=== PATIENT | female | born 1995 | race Caucasian/White ===

== ENCOUNTER 2017-04-06 08:58 | Emergency (ER) | payer SELFPAY ==
[2017-04-06 09:10] VITALS: BP 111/95
--- NOTE | 2017-04-06 09:45 | ER Document Report ---
HPI - HPI Patient complains to provider of: chemical burn Onset: Other - 2 days Onset/Duration: Persistent Quality of pain: Burning Pain Level: 4 Context: States that she her hair 2 days ago. Patient states that she developed burning to her scalp and has since developed bruising scabbed lesions to the scalp. Patient states she previously has had a reaction to hair dye in the past that she thought it was only attributed to the pneumonia in the product. Patient states she used a hair dye without pneumonia 2 days ago. Associated Symptoms: Other - scalp pain, skin lesions. denies: Earache, Fever Exacerbated by: Denies Relieved by: Denies Similar symptoms previously: Yes Recently seen / treated by doctor: No - ROS ROS below otherwise negative: Yes Systems Reviewed and Negative: Yes All other systems reviewed and negative - CONSTITUTIONAL Constitutional: DENIES: Fever, Chills - NEURO Neurology: DENIES: Headache - GASTROINTESTINAL Gastrointestinal: DENIES: Nausea - REPRODUCTIVE Reproductive: DENIES: : - DERM Skin Color: Normal, [place] Notes: oozing skin lesions to scalp Past Medical History - General Information source: Patient - Social History Smoking Status: Current Every Day Smoker Frequency of alcohol use: Occasional Drug Abuse: None Occupation: [employer] Family History: Reviewed & Not Pertinent Patient has suicidal ideation: No Patient has homicidal ideation: No Renal/ Medical History: Denies: Hx Peritoneal Dialysis GI Medical History: Reports: Hx Gastritis, Hx Hiatal Hernia Skin Medical History: Reports Hx Cellulitis, Reports Hx Eczema Psychiatric Medical History: Reports: Hx Bipolar Disorder, Hx Depression Past Surgical History: Reports: Hx Abdominal Surgery - flap to stomach - Immunizations Immunizations up to date: Yes Hx Diphtheria, Pertussis, Tetanus Vaccination: Yes Vertical Provider Document - CONSTITUTIONAL Agree With Documented VS: Yes Exam Limitations: No Limitations General Appearance: WD/WN, No Apparent Distress - INFECTION CONTROL TRAVEL OUTSIDE OF THE [place] IN LAST 30 DAYS: No - HEENT HEENT: Atraumatic, Normocephalic - NECK Neck: Normal Inspection, Supple. negative: Lymphadenopathy-Left, Lymphadenopathy-Right - RESPIRATORY Respiratory: Breath Sounds Normal, No Respiratory Distress O2 Sat by Pulse Oximetry: 97 - CARDIOVASCULAR Cardiovascular: Regular Rate, Regular Rhythm - BACK Back: Normal Inspection - MUSCULOSKELETAL/EXTREMETIES Musculoskeletal/Extremeties: MAEW - NEURO Level of Consciousness: Awake, Alert, Appropriate - DERM Integumentary: Warm, Dry, Rash - erythematous weeping skin lesions to scalp. negative: Abscess Course - Re-evaluation Re-evalutation: 04/06/17 09:[address] lara who advises treating with bactrim and avoiding hair dye in the future pt requests having a test - Vital Signs Vital signs: Temp Pulse Resp BP Pulse Ox 98.7 F 107 H 16 111/95 H 97 04/06/17 09:07 04/06/17 09:07 04/06/17 09:07 04/06/17 09:07 04/06/17 09:07 - Laboratory Laboratory results interpreted by me: 04/06/17 10:46 Labs- Entire Visit 04/06/17 09:55 Urine HCG, Qual NEGATIVE Discharge - Discharge Clinical Impression: Skin rash Condition: Stable Disposition: HOME, SELF-CARE Instructions: Soap Cleansing ([facility]), Trimethoprim-Sulfa ([facility]), Contact Dermatitis ([facility]) Additional Instructions: return as needed for any new or worsening symptoms follow up with a oven stripper for any continued problems follow up with a primary care provider for a recheck Prescriptions: Sulfamethoxazole/Trimethoprim [Bactrim Ds Tablet] 1 each PO BID #20 tablet Referrals: SCOT FERGUSON DO [ACTIVE STAFF] - Follow up as needed [facility] [Provider Group] - Follow up as needed [facility] [Provider Group] - Follow up as needed
== END 2017-04-06 11:04 | disposition home or self-care (01) ==
LOC: ER 08:58
DX: R21 Rash and other nonspecific skin eruption (principal); F17.200 Nicotine dependence, unspecified, uncomplicated
CPT/HCPCS: 81025; 99283

== ENCOUNTER 2017-10-18 11:45 | Emergency (ER) | payer SELFPAY ==
[2017-10-18 12:05] VITALS: BP 124/73
--- NOTE | 2017-10-18 13:07 | ER Document Report ---
ED Respiratory Problem - General Chief Complaint: Cough Stated Complaint: FEVER Time Seen by Provider: 10/18/17 12:49 TRAVEL OUTSIDE OF THE [place]. IN LAST 30 DAYS: No - HPI Notes: 21 years old female presents today with sore throat for 2 days and coughing on and off for the last 2 days 2 with clear sputum. She is a smoker has been wheezing on and off. Denies any fever chills or other cough or constitutional symptoms. - Related Data Allergies/Adverse Reactions: risperidone [From Risperdal] Allergy (Mild, Verified 10/18/17 11:46) cephalexin [From Keflex] Allergy (Verified 10/18/17 11:46) prednisone Allergy (Verified 10/18/17 11:46) acetaminophen [From Tylenol] Adverse Reaction (Verified 10/18/17 11:46) hydrocodone bitartrate [From Vicodin] Adverse Reaction (Verified 10/18/17 11:46) Past Medical History - Social History Smoking Status: Current Every Day Smoker Chew tobacco use (# tins/day): No Frequency of alcohol use: Occasional Drug Abuse: Marijuana Family History: Reviewed & Not Pertinent Patient has suicidal ideation: No Patient has homicidal ideation: No Renal/ Medical History: Denies: Hx Peritoneal Dialysis GI Medical History: Reports: Hx Gastritis, Hx Hiatal Hernia Skin Medical History: Reports Hx Cellulitis, Reports Hx Eczema Psychiatric Medical History: Reports: Hx Bipolar Disorder, Hx Depression Past Surgical History: Reports: Hx Abdominal Surgery - flap to stomach - Immunizations Immunizations up to date: Yes Hx Diphtheria, Pertussis, Tetanus Vaccination: Yes Review of Systems - Review of Systems Notes: REVIEW OF SYSTEMS: CONSTITUTIONAL : Denies fever, chills, or sweats. Denies recent illness. EENT: Denies eye, ear, throat, or mouth pain or symptoms. Denies nasal or sinus congestion or discharge. Sore throat, tongue, or mouth swelling or difficulty swallowing. CARDIOVASCULAR: Denies chest pain. Denies palpitations or racing or irregular heart beat. Denies ankle edema. RESPIRATORY: Denies, cold, or chest congestion. Denies shortness of breath, difficulty breathing, or wheezing. GASTROINTESTINAL: Denies abdominal pain or distention. Denies nausea, vomiting , or diarrhea. Denies blood in vomitus, stools, or per rectum. Denies black, tarry stools. Denies constipation. GENITOURINARY: Denies difficulty urinating, painful urination, burning, frequency, blood in urine, or discharge. FEMALE GENITOURINARY: Denies vaginal bleeding, heavy or abnormal periods, irregular periods. Denies vaginal discharge or odor. MUSCULOSKELETAL: Denies back or neck pain or stiffness. Denies joint pain or swelling. SKIN: Denies rash, lesions or sores. HEMATOLOGIC : Denies easy bruising or bleeding. LYMPHATIC: Denies swollen, enlarged glands. NEUROLOGICAL: Denies confusion or altered mental status. Denies passing out or loss of consciousness. Denies dizziness or lightheadedness. Denies headache. Denies weakness or paralysis or loss of use of either side. Denies problems with gait or speech. Denies sensory loss, numbness, or tingling. Denies seizures. PSYCHIATRIC: Denies anxiety or stress. Denies depression, suicidal ideation, or homicidal ideation. ALL OTHER SYSTEMS REVIEWED AND NEGATIVE. PHYSICAL EXAMINATION: GENERAL: Well-appearing, well-nourished and in no acute distress. HEAD: Atraumatic, normocephalic. EYES: Pupils equal round and reactive to light, extraocular movements intact, conjunctiva are normal. ENT: Nares patent, oropharynx erythematous no exudates noted. Moist mucous membranes. NECK: Normal range of motion, supple without lymphadenopathy LUNGS: Breath sounds clear to auscultation bilaterally and equal. scattered wheezes were heard on the right side of the lung field mild HEART: Regular rate and rhythm without murmurs ABDOMEN: Soft, nontender, nondistended abdomen. No guarding, no rebound. No masses appreciated. Female : deferred Musculoskeletal: Normal range of motion, no pitting or edema. No cyanosis. NEUROLOGICAL: Cranial nerves grossly intact. Normal speech, normal gait. Normal sensory, motor exams PSYCH: Normal mood, normal affect. SKIN: Warm, Dry, normal turgor, no rashes or lesions noted. Dictation was performed using [employer] voice recognition software Physical Exam - Vital signs Vitals: Temp Pulse Resp BP Pulse Ox 99.0 F 85 16 124/73 99 10/18/17 12:04 10/18/17 12:04 10/18/17 12:04 10/18/17 12:04 10/18/17 12:04 Course - Vital Signs Vital signs: Temp Pulse Resp BP Pulse Ox 99.0 F 85 16 124/73 99 10/18/17 12:04 10/18/17 12:04 10/18/17 12:04 10/18/17 12:04 10/18/17 12:04 Discharge - Discharge Clinical Impression: Wheezy bronchitis Pharyngitis Qualifiers: Pharyngitis/tonsillitis etiology: other specified organisms Qualified Code(s): J02.8 - Acute pharyngitis due to other specified organisms Condition: Good Disposition: HOME, SELF-CARE Instructions: Stop Smoking ([facility]), Upper Respiratory Illness ([facility]) Prescriptions: Albuterol Sulfate [Proair HFA] 1 - 2 puff IH Q4 PRN #1 inhaler PRN Reason: Azithromycin [Zithromax] 500 mg PO DAILY #5 tablet Referrals: [facility] [Provider Group] - Follow up as needed
[2017-10-18 13:31] LABS: APPEARANCE,URINE CLEAR; BILIRUBIN,URINE NEGATIVE (NEGATIVE); GLUCOSE, URINE NEGATIVE (NEGATIVE); KETONES,URINE NEGATIVE (NEGATIVE); LEUKOCYTE ESTERASE,URINE NEGATIVE (NEGATIVE); NITRITE,URINE NEGATIVE (NEGATIVE); PROTEIN,URINE NEGATIVE (NEGATIVE); URINE SPECIFIC GRAVITY 1.016; UROBILINOGEN,URINE NEGATIVE mg/dL (<2.0)
== END 2017-10-18 13:27 | disposition home or self-care (01) ==
LOC: ER 11:45
DX: R06.2 Wheezing (principal); J40 Bronchitis, not specified as acute or chronic; J02.8 Acute pharyngitis due to other specified organisms
CPT/HCPCS: 81001; 81025; 99283

== ENCOUNTER 2018-02-05 08:51 | Emergency (ER) | payer SELFPAY ==
[2018-02-05 09:10] VITALS: BP 124/74
--- NOTE | 2018-02-05 09:34 | ER Document Report ---
ED General - General Chief Complaint: Skin Problem Stated Complaint: POSSIBLE SPIDER BITE, NAUSEA, FEVER, DIZZY Time Seen by Provider: 02/05/18 09:28 Mode of Arrival: Ambulatory Information source: Patient Notes: Patient states she scraped her knee several days ago. During 2 days ago she noticed a tender red area over her right knee. It is worse when touched and better if left alone. The pain does radiate up the right leg. It is moderate and constant. She states she has also had some systemic symptoms of fevers chills and nausea. She denies any abdominal pain. She does not believe that she is . She has had no cough or cold symptoms. TRAVEL OUTSIDE OF THE [place] IN LAST 30 DAYS: No - Related Data Allergies/Adverse Reactions: risperidone [From Risperdal] Allergy (Mild, Verified 02/05/18 09:15) cephalexin [From Keflex] Allergy (Verified 02/05/18 09:15) prednisone Allergy (Verified 02/05/18 09:15) acetaminophen [From Tylenol] Adverse Reaction (Verified 02/05/18 09:15) hydrocodone bitartrate [From Vicodin] Adverse Reaction (Verified 02/05/18 09:15) Past Medical History - General Information source: Patient - Social History Smoking Status: Current Every Day Smoker Frequency of alcohol use: Social Drug Abuse: Marijuana Family History: Reviewed & Not Pertinent Patient has suicidal ideation: No Patient has homicidal ideation: No Renal/ Medical History: Denies: Hx Peritoneal Dialysis GI Medical History: Reports: Hx Gastritis, Hx Hiatal Hernia Skin Medical History: Reports Hx Cellulitis, Reports Hx Eczema Psychiatric Medical History: Reports: Hx Bipolar Disorder, Hx Depression Past Surgical History: Reports: Hx Abdominal Surgery - flap to stomach - Immunizations Immunizations up to date: Yes Hx Diphtheria, Pertussis, Tetanus Vaccination: Yes Review of Systems - Review of Systems Constitutional: Chills, Malaise Cardiovascular: denies: Chest pain, Palpitations Respiratory: denies: Cough, Short of breath Physical Exam - Vital signs Vitals: Temp Pulse Resp BP Pulse Ox 98.4 F 68 14 124/74 100 02/05/18 09:06 02/05/18 09:06 02/05/18 09:06 02/05/18 09:06 02/05/18 09:06 Interpretation: Normal - General General appearance: Appears well, Alert In distress: None - Respiratory Respiratory status: No respiratory distress Chest status: Nontender Breath sounds: Normal Chest palpation: Normal - Cardiovascular Rhythm: Regular Heart sounds: Normal auscultation Murmur: No - Abdominal Inspection: Normal Distension: No distension Bowel sounds: Normal Tenderness: Nontender Organomegaly: No organomegaly - Extremities General upper extremity: Normal inspection, Nontender, Normal color, Normal ROM , Normal temperature General lower extremity: Tender, Normal ROM, Normal temperature, Normal weight bearing, Other - There is a small 1 cm in diameter erythematous area over the right knee with a pustule in the center. It is consistent with an abscess.. No : Aubrey's sign - Psychological Associated symptoms: Normal affect, Normal mood - Skin Skin Temperature: Warm Skin Moisture: Dry Skin Color: Other - See above note under extremities. Course - Vital Signs Vital signs: Temp Pulse Resp BP Pulse Ox 98.4 F 68 14 124/74 100 02/05/18 09:06 02/05/18 09:06 02/05/18 09:06 02/05/18 09:06 02/05/18 09:06 Procedures - Incision and Drainage Right Knee Time completed: 09:32 Type: Simple Anesthetic type: Other - No anesthesia was necessary. Blade size: Other - Used 22-gauge needle I&D procedure: Sterile dressing applied Incision Method: Incision made with needle Amount/type of drainage: 1cc Notes: 02/05/18 09:33 Use manual pressure to express the rest of the pus Discharge - Discharge Clinical Impression: Cutaneous abscess of extremity Qualifiers: Site of cutaneous abscess of extremity: lower extremity Laterality: right Qualified Code(s): L02.415 - Cutaneous abscess of right lower limb Condition: Stable Disposition: HOME, SELF-CARE Instructions: Post Incision and Drainage, Trimethoprim-Sulfa ([facility]), Oral Narcotic Medication ([facility]), Abscess ([facility]) Prescriptions: Ondansetron [Zofran Odt 4 mg Tablet] 1 - 2 tab PO Q4HP PRN #10 tab.rapdis PRN Reason: Tramadol HCl [Ultram 50 mg Tablet] 50 mg PO Q4HP PRN #10 tab PRN Reason: Sulfamethoxazole/Trimethoprim [Bactrim Ds Tablet] 1 each PO BID 5 Days #10 tablet Forms: Return to Work
== END 2018-02-05 09:37 | disposition home or self-care (01) ==
LOC: ER 08:51
PROC: 0H9KXZZ Drainage of Right Lower Leg Skin, External Approach (ICD-10-PCS; principal; 2018-02-05)
DX: L02.415 Cutaneous abscess of right lower limb (principal); R42 Dizziness and giddiness; M79.604 Pain in right leg; R11.0 Nausea; R50.9 Fever, unspecified; F17.200 Nicotine dependence, unspecified, uncomplicated
CPT/HCPCS: 99283

== ENCOUNTER 2018-05-31 19:08 | Emergency (ER) | payer SELFPAY ==
[2018-05-31] MEDS ORDERED: DOXYCYCLINE HYCLATE INJ 100 MG VIAL IV ONE (21:06)
--- NOTE | 2018-05-31 21:12 | ER Document Report ---
ED Skin Rash/Insect Bite/Abscs - General Chief Complaint: Insect Bite Stated Complaint: INSECT BITE Time Seen by Provider: 05/31/18 20:41 Mode of Arrival: Ambulatory Information source: Patient Notes: 22-year-old female presented ED for complaint of tick bite about a month and half ago. She states that over the last week she has developed a rash at the site and she is getting body aches and joint pain that is getting worse over the last couple days. She is unsure if the head of the canine or not. She states the site has been sore for last month and a half but it is never flared up or gotten red or swollen. TRAVEL OUTSIDE OF THE [place] IN LAST 30 DAYS: No - HPI Patient complains to provider of: Skin rash/lesion, Tick bite Onset: Other - Month and half ago Onset/Duration: Gradual Quality of pain: Achy Severity: Moderate Pain Level: 2 Skin Character: Rash - Skin rash around the tick bite site. States she has had tenderness at the tick bite site since it first with her about a month and a half ago Quality of rash: Painful Identify cause: Yes - States the tick bite Exacerbated by: Movement, Walking Relieved by: Denies Similar symptoms previously: No Recently seen / treated by doctor: No - Related Data Allergies/Adverse Reactions: risperidone [From Risperdal] Allergy (Mild, Verified 05/31/18 20:09) cephalexin [From Keflex] Allergy (Verified 05/31/18 20:09) prednisone Allergy (Verified 05/31/18 20:09) acetaminophen [From Tylenol] Adverse Reaction (Verified 05/31/18 20:09) hydrocodone bitartrate [From Vicodin] Adverse Reaction (Verified 05/31/18 20:09) Past Medical History - General Information source: Patient - Social History Smoking Status: Current Every Day Smoker Cigarette use (# per day): Yes - Pack per day Chew tobacco use (# tins/day): No Smoking Education Provided: Yes - 4 minutes Frequency of alcohol use: Heavy - 1-2 mixed drinks a day Drug Abuse: Marijuana Occupation: Parts Sales Representative at [employer] Lives with: Spouse/Significant other Family History: Reviewed & Not Pertinent Patient has suicidal ideation: No Patient has homicidal ideation: No - Past Medical History Cardiac Medical History: Reports: None Pulmonary Medical History: Reports: None EENT Medical History: Reports: None Neurological Medical History: Reports: None Endocrine Medical History: Reports: None Renal/ Medical History: Reports: None Malignancy Medical History: Reports: None GI Medical History: Reports: Hx Gastritis, Hx Gastroesophageal Reflux Disease, Hx Hiatal Hernia Skin Medical History: Reports Hx Cellulitis, Reports Hx Eczema Psychiatric Medical History: Reports: Hx Bipolar Disorder, Hx Depression Traumatic Medical History: Reports: None Infectious Medical History: Reports: None Past Surgical History: Reports: Hx Abdominal Surgery - flap to stomach - Immunizations Immunizations up to date: Yes Hx Diphtheria, Pertussis, Tetanus Vaccination: Yes Review of Systems - Review of Systems Constitutional: No symptoms reported EENT: No symptoms reported Cardiovascular: No symptoms reported Respiratory: No symptoms reported Gastrointestinal: No symptoms reported Genitourinary: No symptoms reported Female Genitourinary: No symptoms reported Musculoskeletal: Joint pain, Muscle pain - Joint pain and muscle pain, Muscle stiffness Skin: Rash - Around the tick bite site with a mild redness to where the tick bite was Hematologic/Lymphatic: No symptoms reported Neurological/Psychological: No symptoms reported -: Yes All other systems reviewed and negative Physical Exam - Vital signs Vitals: Temp Pulse Resp BP Pulse Ox 98.8 F 63 16 121/75 99 05/31/18 19:43 05/31/18 19:43 05/31/18 19:43 05/31/18 19:43 05/31/18 19:43 Interpretation: Normal - General General appearance: Appears well, Alert - HEENT Head: Normocephalic, Atraumatic Eyes: Normal Pupils: PERRL - Respiratory Respiratory status: No respiratory distress Chest status: Nontender Breath sounds: Normal Chest palpation: Normal - Cardiovascular Rhythm: Regular Heart sounds: Normal auscultation Murmur: No - Abdominal Inspection: Normal Distension: No distension Bowel sounds: Normal Tenderness: Nontender Organomegaly: No organomegaly - Back Back: Normal, Nontender - Extremities General upper extremity: Normal inspection, Nontender, Normal color, Normal ROM , Normal temperature General lower extremity: Normal inspection, Nontender, Normal color, Normal ROM , Normal temperature, Normal weight bearing. No: Aubrey's sign - Neurological Neuro grossly intact: Yes Cognition: Normal Orientation: AAOx4 [place] Coma Scale Eye Opening: Spontaneous [place] Coma Scale Verbal: Oriented [place] Coma Scale Motor: Obeys Commands [place] Coma Scale Total: 15 Speech: Normal Motor strength normal: LUE, RUE, LLE, RLE Sensory: Normal - Psychological Associated symptoms: Normal affect, Normal mood - Skin Skin Temperature: Warm Skin Moisture: Dry Skin Color: Normal Skin irregularity: Rash - Around the site of the tick bite Character of irregularity: Erythematous - On the site of the tick bite Irregularity with: Tenderness Course - Re-evaluation Re-evalutation: 06/01/18 02:50 Patient was treated with doxycycline and discharged home with a prescription for doxycycline for the next 2 weeks. Hye spotted fever and Lyme test were drawn and sent for testing. Patient instructed to follow-up with her primary doctor - Vital Signs Vital signs: Temp Pulse Resp BP Pulse Ox 98.4 F 57 L 16 110/69 100 05/31/18 21:39 05/31/18 21:39 05/31/18 19:43 05/31/18 21:39 05/31/18 21:39 Discharge - Discharge Clinical Impression: Body aches Tick bite of left flank Qualifiers: Encounter type: initial encounter Qualified Code(s): S30.861A - Insect bite ( nonvenomous) of abdominal wall, initial encounter Condition: Stable Disposition: HOME, SELF-CARE Instructions: Family Physicians / Practices, Use of [id number] Ibuprofen ([facility]) Additional Instructions: Tick Bites You have been "attacked" by a tick. Once the tick is removed, these "bites " usually cause no problems. Tick fever, tick paralysis, [place] Spotted fever, and Lyme disease are very rare -- but you should mention this tick bite to your doctor if you develop unusual symptoms in the next several weeks. If you develop any of the following, please see your physician promptly: (1) Fever, chills, or generalized malaise associated with a headache. (2) A rash. (3) Joint pain, joint swelling or generalized weakness. (4) Redness, swelling, or drainage at the site of the bite. Check yourself, your children and your pets for ticks whenever you've been in an area where ticks live. To remove a tick, grasp it firmly with some tweezers as close to its head as possible and pull it out twisting the tweezers in a counter-clockwise direction. Doxycycline Doxycycline (Vibramycin, Doryx) is an antibiotic of the tetracycline family. This type of drug is useful for infections of the respiratory tract and genital tract, and is sometimes used for intestinal infections. Unlike most tetracyclines, doxycycline can be taken with food. It is longer acting, and (usually) less prone to side effects than regular tetracycline. Tetracycline antibiotics can stain immature teeth and SHOULD NOT BE TAKEN BY CHILDREN, NURSING MOTHERS, OR WOMEN. Tetracyclines can make you more prone to sunburn. Abdominal cramping, nausea, and diarrhea are occasional side effects. Women may experience vaginal yeast infections. Call the doctor at once if you develop hives, itching, shortness of breath , or lightheadedness. FOLLOW-UP CARE: If you have been referred to a physician for follow-up care, call the physician s office for an appointment as you were instructed or within the next two days. If you experience worsening or a significant change in your symptoms, notify the physician immediately or return to the Emergency Department at any time for re-evaluation. Prescriptions: Doxycycline Hyclate 100 mg PO BID #28 capsule Forms: Return to Work
[2018-05-31] MEDS ORDERED: DOXYCYCLINE HYCLATE 100 MG TABLET PO ONE (21:26)
[2018-05-31 21:41] VITALS: BP 110/69
[2018-06-03 09:07] LABS: LYME DISEASE IGM AB <0.80 index (0.00-0.79); ROCKY MTN SPOTTED FEVER IGM AB 0.11 index (0.00-0.89)
[2018-06-04 07:35] LABS: ROCKY MTN SPOTTED FEV IGG EIA Negative (Negative)
== END 2018-05-31 21:41 | disposition home or self-care (01) ==
LOC: ER 19:08
DX: R21 Rash and other nonspecific skin eruption (principal); M79.1 Myalgia; S30.861A Insect bite (nonvenomous) of abdominal wall, initial encounter; W57.XXXA Bitten or stung by nonvenomous insect and other nonvenomous arthropods, initial encounter; F17.210 Nicotine dependence, cigarettes, uncomplicated; Z88.6 Allergy status to analgesic agent
CPT/HCPCS: 36415; 86617; 86618; 86757; 99282; 99406

== ENCOUNTER 2018-06-02 13:14 | Emergency (ER) | payer SELFPAY ==
[2018-06-02 13:33] VITALS: BP 120/63
--- NOTE | 2018-06-02 13:49 | ER Document Report ---
HPI - HPI Patient complains to provider of: ? allergic reaction Onset: Other - 2 days Pain Level: 3 Context: 22 yo female c/o diarrhea, headache, aches, fever since starting doxycycline for infalmed tickbite from 1 month ago. She had removed the imbedded tick and was seen in ER tx with doxycycline. The titers are pending. Associated Symptoms: None Exacerbated by: Denies Relieved by: Denies - ROS ROS below otherwise negative: Yes Systems Reviewed and Negative: Yes All other systems reviewed and negative - REPRODUCTIVE Reproductive: DENIES: : - DERM Skin Color: Normal Past Medical History - General Information source: Patient - Social History Smoking Status: Current Every Day Smoker Chew tobacco use (# tins/day): No Frequency of alcohol use: Occasional Lives with: Family Family History: Reviewed & Not Pertinent Patient has suicidal ideation: No Patient has homicidal ideation: No Renal/ Medical History: Denies: Hx Peritoneal Dialysis GI Medical History: Reports: Hx Gastritis, Hx Gastroesophageal Reflux Disease, Hx Hiatal Hernia Skin Medical History: Reports Hx Cellulitis, Reports Hx Eczema Psychiatric Medical History: Reports: Hx Bipolar Disorder, Hx Depression Past Surgical History: Reports: Hx Abdominal Surgery - flap to stomach - Immunizations Immunizations up to date: Yes Hx Diphtheria, Pertussis, Tetanus Vaccination: Yes Vertical Provider Document - CONSTITUTIONAL Agree With Documented VS: Yes Exam Limitations: No Limitations General Appearance: No Apparent Distress - INFECTION CONTROL TRAVEL OUTSIDE OF THE [place] IN LAST 30 DAYS: No - HEENT HEENT: Normal ENT Exam - NECK Neck: Supple. negative: Lymphadenopathy-Left, Lymphadenopathy-Right - RESPIRATORY Respiratory: Breath Sounds Normal, No Respiratory Distress - CARDIOVASCULAR Cardiovascular: Regular Rate, Regular Rhythm - GI/ABDOMEN Gastrointestinal: Abdomen Soft, Abdomen Non-Tender - NEURO Level of Consciousness: Alert - DERM Notes: 2mm lesions with petechiael linear abrasions left lower lateral chest wall, ? head in the lesion. LET used, 18 gauge needle lifted the dark center and it was clothe, no tick head., bacitracin, bandaid Course - Re-evaluation Re-evalutation: 06/02/18 14:40 The rickettsial, Lyme titers are pending - Vital Signs Vital signs: Temp Pulse Resp BP Pulse Ox 98.7 F 81 14 120/63 98 06/02/18 13:31 06/02/18 13:31 06/02/18 13:31 06/02/18 13:31 06/02/18 13:31 Discharge - Discharge Clinical Impression: doxycycline side effects, Nausea Diarrhea Qualifiers: Diarrhea type: unspecified type Qualified Code(s): R19.7 - Diarrhea, unspecified Condition: Good Disposition: HOME, SELF-CARE Instructions: Diarrhea, Nonspecific ([facility]), Nausea or Vomiting, Nonspecific ([facility] ), Tick Bites ([facility]) Additional Instructions: one dose of the immodium today for the diarrhea call tomorrow for the ricketsial and lyme titer results, if they are negative you can stop the doxycycline see family practice doctor if you continue to feel sick Prescriptions: Promethazine HCl [Phenergan 25 mg Tablet] 25 mg PO Q4HP PRN #20 tablet PRN Reason: Forms: Return to Work
[2018-06-02] MEDS ORDERED: LIDOCAINE 4%/TETRACAINE 0.5%/EPI 0.18% 5 ML TOPICAL SOLN TOP ONE (14:11)
[2018-06-02] MEDS ORDERED: LOPERAMIDE HCL 2 MG CAPSULE PO ONE (14:52)
== END 2018-06-02 15:15 | disposition home or self-care (01) ==
LOC: ER 13:14
DX: R11.0 Nausea (principal); R19.7 Diarrhea, unspecified; T36.4X5A Adverse effect of tetracyclines, initial encounter; T14.8XXA Other injury of unspecified body region, initial encounter; W57.XXXA Bitten or stung by nonvenomous insect and other nonvenomous arthropods, initial encounter; F17.200 Nicotine dependence, unspecified, uncomplicated; R50.9 Fever, unspecified; R51 Headache
CPT/HCPCS: 99283; J3490

== ENCOUNTER 2019-01-02 22:02 | Emergency (ER) | payer SELFPAY ==
[2019-01-02] MEDS ORDERED: TRAMADOL HCL 50 MG TABLET PO ONE (23:55)
[2019-01-02] MEDS ORDERED: IBUPROFEN 800 MG TABLET PO ONE (23:55)
[2019-01-02] MEDS ORDERED: PENICILLIN V POTASSIUM 500 MG TABLET PO ONE (23:55)
--- NOTE | 2019-01-02 23:57 | ER Document Report ---
HPI - HPI Patient complains to provider of: Dental pain Time Seen by Provider: 01/02/19 23:30 Onset: Other - 6 months, worse over the past week Onset/Duration: Worse Quality of pain: Achy Pain Level: 5 Context: Patient presents complaining of dental pain from decayed broken teeth for the past 6 months. Patient states the pain worsened over the past week but she was taking care of her mother who had recently gotten out of surgery. Patient denies any fever or facial swelling. Associated Symptoms: Other - Dental pain. denies: Fever Exacerbated by: Denies Relieved by: Denies Similar symptoms previously: Yes Recently seen / treated by doctor: No - ROS ROS below otherwise negative: Yes Systems Reviewed and Negative: Yes All other systems reviewed and negative - CONSTITUTIONAL Constitutional: DENIES: Fever - EENT Notes: Dental pain - GASTROINTESTINAL Gastrointestinal: DENIES: Nausea, Patient vomiting - REPRODUCTIVE Reproductive: DENIES: : - MUSCULOSKELETAL Musculoskeletal: DENIES: Back Pain, Neck Pain - DERM Skin Color: Normal Skin Problems: None Past Medical History - General Information source: Patient - Social History Smoking Status: Current Every Day Smoker Smoking Education Provided: Yes Frequency of alcohol use: Occasional Drug Abuse: Marijuana Occupation: None Family History: Reviewed & Not Pertinent Patient has suicidal ideation: No Patient has homicidal ideation: No Renal/ Medical History: Denies: Hx Peritoneal Dialysis GI Medical History: Reports: Hx Gastritis, Hx Gastroesophageal Reflux Disease, Hx Hiatal Hernia Skin Medical History: Reports Hx Cellulitis, Reports Hx Eczema Psychiatric Medical History: Reports: Hx Bipolar Disorder, Hx Depression Past Surgical History: Reports: Hx Abdominal Surgery - flap to stomach - Immunizations Immunizations up to date: Yes Hx Diphtheria, Pertussis, Tetanus Vaccination: Yes Vertical Provider Document - CONSTITUTIONAL Agree With Documented VS: Yes Exam Limitations: No Limitations General Appearance: WD/WN, No Apparent Distress - INFECTION CONTROL TRAVEL OUTSIDE OF THE [place] IN LAST 30 DAYS: No - HEENT HEENT: Atraumatic, Normocephalic. negative: Pharyngeal Exudate, Pharyngeal Tenderness, Pharyngeal Erythema, Tympanic Membrane Red, Tympanic Membrane Bulging Mouth Diagram: 1 - Tenderness, dental decay, no abscess, no trismus - NECK Neck: Normal Inspection, Supple. negative: Lymphadenopathy-Left, Lymphadenopat hy-Right - RESPIRATORY Respiratory: Breath Sounds Normal, No Respiratory Distress - CARDIOVASCULAR Cardiovascular: Regular Rate, Regular Rhythm - BACK Back: Normal Inspection - MUSCULOSKELETAL/EXTREMETIES Musculoskeletal/Extremeties: SURY LONG - NEURO Level of Consciousness: Awake, Alert, Appropriate Motor/Sensory: No Motor Deficit - DERM Integumentary: Warm, Dry, No Rash Course - Re-evaluation Re-evalutation: 01/03/19 00:37 Patient now states that she is unable to take tramadol as well although she did not list this as an allergy initially. Patient states that she can take Percocet without any adverse reaction. Patient advised that Percocet does in fact contain acetaminophen. Patient advised that she will be given a dose of pain medicine here and that no narcotics will be written. Discharge - Discharge Clinical Impression: Toothache Condition: Stable Disposition: HOME, SELF-CARE Instructions: Dentist, Penicillin V K ([facility]), Toothache ([facility]) Additional Instructions: Return immediately for any new or worsening symptoms Followup with your dental care provider, call Saturday to make a followup appointment Prescriptions: Naproxen [Naprosyn 250 Nmg Tablet] 1 tab PO BID #14 tablet Penicillin V Potassium [Penicillin Vk 500 mg Tablet] 500 mg PO BID #20 tablet Forms: Smoking Cessation Education Referrals: [facility] [Provider Group] - Follow up as needed
[2019-01-03 00:03] VITALS: BP 121/69
[2019-01-03] MEDS ORDERED: OXYCODONE HCL IR 5 MG TABLET PO ONE (00:37)
== END 2019-01-03 01:02 | disposition home or self-care (01) ==
LOC: ER 22:02
DX: K08.9 Disorder of teeth and supporting structures, unspecified (principal); F17.200 Nicotine dependence, unspecified, uncomplicated
CPT/HCPCS: 99282

== ENCOUNTER 2019-05-12 12:08 | Emergency (ER) | payer OTHER ==
[2019-05-12 12:13] VITALS: BP 144/73
[2019-05-12] MEDS ORDERED: MAG HYDROX/AL HYDROX/SIMETH SUSP 30 ML UDCUP PO ONE (12:42)
[2019-05-12] MEDS ORDERED: LIDOCAINE 2% VISCOUS SOLN 20 ML UDCUP PO ONE (12:43)
--- NOTE | 2019-05-12 12:47 | ER Document Report ---
ED General - General Chief Complaint: Abdominal Pain Stated Complaint: ABDOMINAL PAIN Time Seen by Provider: 05/12/19 12:36 Primary Care Provider: AURORA PETERS MD [ACTIVE STAFF] - Follow up in 3-5 days YESSI PALAFOX MD [ACTIVE STAFF] - Follow up as needed Mode of Arrival: Ambulatory Information source: Patient TRAVEL OUTSIDE OF THE [place] IN LAST 30 DAYS: No - HPI Notes: 23-year-old female with a history of GERD presents to the ED for complaints of epigastric burning pain that has been occurring in the last week, patient has not been taking her PPI due to any other medication. Patient states that she did have episode of vomiting couple days ago, did resolve, woke up this morning in severe pain, had a caudal work. Patient states that she has had GERD since she was 13, did have an endoscopy 10 years ago, ran out of insurance any other medication or seen by PCP. Last LMP was April 23, 2019. Denies fevers, chills, chest pain,palpitations, shortness of breath, dyspnea,diarrhea hematuria,blurred vision, double vision, loss of vision, speech changes, LH, dizziness, syncope, headaches, wheezing, ST, URI, neck pain, weakness, bowel or bladder dysfunction, saddle anesthesia, numbness or tingling in bilateral upper or lower extremities equally, muscle paralysis, weakness in bilateral upper or lower extremities equally or rash. - Related Data Allergies/Adverse Reactions: risperidone [From Risperdal] Allergy (Mild, Verified 05/12/19 12:09) cephalexin [From Keflex] Allergy (Verified 05/12/19 12:09) prednisone Allergy (Verified 05/12/19 12:09) acetaminophen [From Tylenol] Adverse Reaction (Verified 05/12/19 12:09) hydrocodone bitartrate [From Vicodin] Adverse Reaction (Verified 05/12/19 12:09) Past Medical History - General Information source: Patient - Social History Smoking Status: Current Every Day Smoker Chew tobacco use (# tins/day): No Frequency of alcohol use: Heavy Drug Abuse: Marijuana Family History: Reviewed & Not Pertinent Patient has suicidal ideation: No Patient has homicidal ideation: No Renal/ Medical History: Denies: Hx Peritoneal Dialysis GI Medical History: Reports: Hx Gastritis, Hx Gastroesophageal Reflux Disease, Hx Hiatal Hernia Skin Medical History: Reports Hx Cellulitis, Reports Hx Eczema Psychiatric Medical History: Reports: Hx Bipolar Disorder, Hx Depression Past Surgical History: Reports: Hx Abdominal Surgery - flap to stomach - Immunizations Immunizations up to date: Yes Hx Diphtheria, Pertussis, Tetanus Vaccination: Yes Review of Systems - Review of Systems Constitutional: No symptoms reported EENT: No symptoms reported Cardiovascular: No symptoms reported Respiratory: No symptoms reported Gastrointestinal: See HPI Genitourinary: No symptoms reported Female Genitourinary: No symptoms reported Musculoskeletal: No symptoms reported Skin: No symptoms reported Hematologic/Lymphatic: No symptoms reported Neurological/Psychological: No symptoms reported Physical Exam - Vital signs Vitals: Temp Pulse Resp BP Pulse Ox 98.6 F 97 18 144/73 H 99 05/12/19 12:12 05/12/19 12:12 05/12/19 12:12 05/12/19 12:12 05/12/19 12:12 - Notes Notes: PHYSICAL EXAMINATION: GENERAL: Well-appearing, well-nourished and in no acute distress. HEAD: Atraumatic, normocephalic. EYES: Pupils equal round and reactive to light, extraocular movements intact, conjunctiva are normal. ENT: Nares patent, oropharynx clear without exudates. Moist mucous membranes. NECK: Normal range of motion, supple without lymphadenopathy LUNGS: Breath sounds clear to auscultation bilaterally and equal. No wheezes rales or rhonchi. HEART: Regular rate and rhythm without murmurs ABDOMEN: epigastric tenderness on palpation soft, nontender, nondistended abdomen. No guarding, no rebound. No masses appreciated. Female : deferred Musculoskeletal: Normal range of motion, no pitting or edema. No cyanosis. NEUROLOGICAL: Cranial nerves grossly intact. Normal speech, normal gait. Normal sensory, motor exams PSYCH: Normal mood, normal affect. SKIN: Warm, Dry, normal turgor, no rashes or lesions noted. Course - Re-evaluation Re-evalutation: 05/12/19 13:36 23-year-old female afebrile vitals stable and in no distress. Urinalysis does show trace leuks, CBC without leukocytosis or anemia. cmp unremarkable. u/s abdomen shows gallbladder sludge. cxr negative, no acute findings per RAD. Dr. Tiana Levine, surgeon cotton cleaner, contacted at [phone], stated he will consult with patient. After consult patient felt that she was okay to go home he is to follow-up with his surgical clinic. Advised no fatty foods until surgery. Discussed with patient these instructions and patient was agreeable with plan of care. We will send patient home with omeprazole. Patient understands that she does need to follow-up with the surgery clinic. After performing a Medical Screening Examination, I estimate there is LOW risk for ACUTE APPENDICITIS, BOWEL OBSTRUCTION, ACUTE CHOLECYSTITIS, PERFORATED DIVERTICULITIS, INCARCERATED HERNIA, PANCREATITIS, PELVIC INFLAMMATORY DISEASE, PERFORATED ULCER, ECTOPIC , or TUBO-OVARIAN ABSCESS, thus I consider the discharge disposition reasonable. Also, there is no evidence or peritonitis, sepsis, or toxicity. I have reevaluated this patient multiple times and no significant life threatening changes are noted. The patient and I have discussed the diagnosis and risks, and we agree with discharging home with close follow-up with the understanding that symptoms and presentations can change. We also discussed returning to the Emergency Department immediately if new or worsening symptoms occur. We have discussed the symptoms which are most concerning (e.g., bloody stool, fever, changing or worsening pain, vomiting) that necessitate immediate return. 05/12/19 14:49 - Vital Signs Vital signs: Temp Pulse Resp BP Pulse Ox 98.6 F 97 18 144/73 H 99 05/12/19 12:12 05/12/19 12:12 05/12/19 12:12 05/12/19 12:12 05/12/19 12:12 - Laboratory Result Diagrams: 05/12/19 12:59 05/12/19 12:59 Laboratory results interpreted by me: 05/12/19 12:59 Ur Leukocyte Esterase TRACE H Urine Ascorbic Acid 20 H Discharge - Discharge Clinical Impression: Gallbladder sludge Gastritis Qualifiers: Chronicity: unspecified Condition: Stable Disposition: HOME, SELF-CARE Instructions: Abdominal Pain ([facility]), Gastritis ([facility]), Reflux Disease (GERD) ([facility]), Low-Fat Diet ([facility]) Additional Instructions: Gastritis You have an inflammation of the stomach called gastritis. This commonly causes upper abdominal pain, nausea, and vomiting. In severe cases, bleeding of the stomach lining can occur. Gastritis can be caused by bacteria or viruses, alcohol, or stomach-irritating drugs. Begin with sips of clear liquids. Take increasing amounts of fluid over the first 24 hours. Then start small amounts of bland foods (such as dry toast, applesauce, mashed potato). Gradually resume your usual diet. You should take antacids every two hours until the pain has subsided. Acid-suppressing drugs may be prescribed as well. Avoid aspirin, caffeine, tobacco, and alcohol. If the abdominal pain worsens, or there is evidence of major bleeding in the stomach (such as black, tarry stool, bloody or black vomit, or lightheadedness), you should return immediately. Call the doctor if you aren't improved in 24 to 36 hours. Start omeprazole daily as directed, avoid irritating foods. Follow-up with optic fibre drawer, referral given as well as primary care provider. Work note given. Return immediately for any new or worsening symptoms. Follow up with primary care provider, call tomorrow to make followup appointment. Prescriptions: Omeprazole 20 mg PO DAILY #30 capsule.dr Forms: Return to Work Referrals: AURORA PETERS MD [ACTIVE STAFF] - Follow up in 3-5 days YESSI PALAFOX MD [ACTIVE STAFF] - Follow up as needed TIANA LEVINE MD [[facility]] - Follow up in 3-5 days
[2019-05-12 13:15] LABS: ABSOLUTE BASOPHILS # (AUTO) 0.1 10^3/uL (0.0-0.2); ABSOLUTE EOSINOPHILS # (AUTO) 0.2 10^3/uL (0.0-0.6); ABSOLUTE LYMPHOCYTES (AUTO) 2.4 10^3/uL (0.5-4.7); ABSOLUTE MONOCYTES (AUTO) 0.7 10^3/uL (0.1-1.4); ABSOLUTE NEUT (AUTO) 6.5 10^3/uL (1.7-8.2); BASOPHILS % (AUTO) 0.6 % (0-2); HEMATOCRIT 42.5 % (36.0-47.0); HEMOGLOBIN 14.4 g/dL (12.0-15.5); LYMPHOCYTES % (AUTO) 24.7 % (13-45); MEAN CORPUSCULAR HEMOGLOBIN 30.6 pg (27.0-33.4); MEAN CORPUSCULAR HGB CONC 33.9 g/dL (32.0-36.0); MEAN CORPUSCULAR VOLUME 90 fl (80-97); MONOCYTES % (AUTO) 6.9 % (3-13); PLATELET COUNT 249 10^3/uL (150-450); RED BLOOD COUNT 4.71 10^6/uL (3.72-5.28); RED CELL DISTRIBUTION WIDTH 13.8 % (11.5-14.0); SEGMENTED NEUTROPHILS % (AUTO) 65.8 % (42-78); TOTAL CELLS COUNTED % (AUTO) 100 %; WHITE BLOOD COUNT 9.8 10^3/uL (4.0-10.5)
[2019-05-12 13:20] LABS: APPEARANCE,URINE SLIGHTLY-CLOUDY; BILIRUBIN,URINE NEGATIVE (NEGATIVE); COLOR,URINE YELLOW; GLUCOSE, URINE NEGATIVE (NEGATIVE); KETONES,URINE NEGATIVE (NEGATIVE); LEUKOCYTE ESTERASE,URINE TRACE (NEGATIVE); NITRITE,URINE NEGATIVE (NEGATIVE); PROTEIN,URINE NEGATIVE (NEGATIVE); URINE SPECIFIC GRAVITY 1.018; UROBILINOGEN,URINE NEGATIVE mg/dL (<2.0)
--- NOTE | 2019-05-12 13:27 | RADIOLOGY REPORT (SQ) ---
EXAM DESCRIPTION: CHEST 2 VIEWS COMPLETED DATE/TIME: 05/12/2019 1:10 pm REASON FOR STUDY: epigastric pain COMPARISON: None. EXAM PARAMETERS: NUMBER OF VIEWS: two views TECHNIQUE: Digital Frontal and Lateral radiographic views of the chest acquired. RADIATION DOSE: NA LIMITATIONS: none FINDINGS: LUNGS AND PLEURA: No opacities, masses or pneumothorax. No pleural effusion. MEDIASTINUM AND HILAR STRUCTURES: No masses or contour abnormalities. HEART AND VASCULAR STRUCTURES: Heart normal size. No evidence for failure. BONES: No acute findings. HARDWARE: None in the chest. OTHER: No other significant finding. IMPRESSION: NO ACUTE RADIOGRAPHIC FINDING IN THE CHEST. TECHNICAL DOCUMENTATION: JOB ID: [id number] [email or web address]- All Rights Reserved Reading location - IP/workstation name: [email or web address]
[2019-05-12 13:37] LABS: ALANINE AMINOTRANSFERASE 24 U/L (9-52); ALBUMIN 4.6 g/dL (3.5-5.0); ALKALINE PHOSPHATASE 61 U/L (38-126); ANION GAP 9 (5-19); ASPARTATE AMINO TRANSFERASE 24 U/L (14-36); BILIRUBIN,DIRECT 0.2 mg/dL (0.0-0.4); BILIRUBIN,TOTAL 0.4 mg/dL (0.2-1.3); BLOOD UREA NITROGEN 11 mg/dL (7-20); CALCIUM 9.6 mg/dL (8.4-10.2); CARBON DIOXIDE 24 mmol/L (22-30); CHLORIDE 106 mmol/L (98-107); GLUCOSE 76 mg/dL (75-110); LIPASE 62.2 U/L (23-300); POTASSIUM 4.1 mmol/L (3.6-5.0); SODIUM 139.4 mmol/L (137-145); TOTAL PROTEIN 7.4 g/dL (6.3-8.2)
--- NOTE | 2019-05-12 14:18 | RADIOLOGY REPORT (SQ) ---
EXAM DESCRIPTION: U/S ABDOMEN COMPLETE W/O DOP COMPLETED DATE/TIME: 05/12/2019 1:47 pm REASON FOR STUDY: epigastric burning pain COMPARISON: CT abdomen and pelvis examinations dated 06/28/2010 TECHNIQUE: Dynamic and static grayscale images acquired of the abdomen and recorded on PACS. Additio nal selected color Doppler and spectral images recorded. Note: Study does not meet criteria for complete doppler/duplex scan LIMITATIONS: None. FINDINGS: PANCREAS: No masses. Visualized pancreatic duct normal caliber. LIVER: The liver measures 12.2 cm in length, normal size. No masses. Echotexture normal. LIVER VASCULATURE: Normal directional flow of the main portal vein and hepatic veins. GALLBLADDER: Trace gallbladder sludge. The gallbladder wall measures 2.0 mm, normal wall thickness. No pericholecystic fluid. ULTRASOUND-DETECTED ST'S SIGN: Negative. INTRAHEPATIC DUCTS AND COMMON DUCT: CBD measures 3.4 mm in diameter, normal. The intrahepatic ducts normal caliber. No filling defects. INFERIOR VENA CAVA: Normal flow. AORTA: No aneurysm. RIGHT KIDNEY: The right kidney measures 10.4 cm, normal size. Normal echogenicity. No solid or s uspicious masses. No hydronephrosis. No calcifications. LEFT KIDNEY: The left kidney measures 10.2 cm, normal size. Normal echogenicity. No solid or julio césar picious masses. No hydronephrosis. No calcifications. SPLEEN: The spleen measures 8.4 cm in length, normal size. No solid masses. PERITONEAL AND PLEURAL SPACES: No ascites or effusions. OTHER: No other significant finding. IMPRESSION: 1. Trace of gallbladder sludge. 2. Otherwise, examination is unremarkable sonographically. TECHNICAL DOCUMENTATION: JOB ID: [id number]- All Rights Reserved Reading location - IP/workstation name: [email or web address]
[2019-05-14 07:24] LABS: HELICOBACTER PYLORI IGA AB <9.0 units (0.0-8.9); HELICOBACTER PYLORI IGG AB <0.80 (0.00-0.79)
== END 2019-05-12 15:31 | disposition home or self-care (01) ==
LOC: ER 12:08
DX: K29.70 Gastritis, unspecified, without bleeding (principal); K82.8 Other specified diseases of gallbladder; K21.9 Gastro-esophageal reflux disease without esophagitis; R10.13 Epigastric pain; F17.200 Nicotine dependence, unspecified, uncomplicated; Z88.8 Allergy status to other drugs, medicaments and biological substances; Z88.1 Allergy status to other antibiotic agents
CPT/HCPCS: 99284; 86677 ×3; 36415; 87086; 83690; 85025; 81025; 80053; 81001; 71046; 76700; J3490

== ENCOUNTER 2019-05-15 13:00 | Observation (INO) | payer OTHER ==
--- NOTE | 2019-05-15 13:26 | ER Document Report ---
ED Medical Screen (RME) - General Chief Complaint: Abdominal Pain Stated Complaint: ABDOMINAL PAIN Time Seen by Provider: 05/15/19 13:17 Mode of Arrival: Ambulatory Information source: Patient Notes: Patient is an otherwise healthy 23-year-old female presented to the emergency room with chief complaint of epigastric and right upper quadrant pain. Patient reports she was seen here approximately 3 days ago was diagnosed with "gallbladder disease". Patient reports he tried to admit her to the hospital however she chose to follow-up outpatient. She states she called [facility] who reported that they would be unable to see her due to her not having any insurance. Patient reports her symptoms have continued as far as the epigastric and right upper quadrant pain however she is no longer vomiting and has not had fever. Upon review of records, patient had normal labs here 3 days ago and had an right upper quadrant ultrasound that showed some sludge in the gallbladder. Exam: Tenderness to palpation to the epigastric and right upper quadrant. Exam limited due to patient position in triage. I have greeted and performed a rapid initial assessment of this patient. A co mprehensive ED assessment and evaluation of the patient, analysis of test results and completion of the medical decision making process will be conducted by additional ED providers. I have specifically instructed the patient or family members with the patient to immediately return to any nursing staff should anything change in the patient's condition or with their chief complaint. This medical record was dictated with voice recognizing software. There may be grammatical, syntax errors that are unintended. TRAVEL OUTSIDE OF THE [place] IN LAST 30 DAYS: No - Related Data Allergies/Adverse Reactions: risperidone [From Risperdal] Allergy (Mild, Verified 05/15/19 13:01) cephalexin [From Keflex] Allergy (Verified 05/15/19 13:01) prednisone Allergy (Verified 05/15/19 13:01) acetaminophen [From Tylenol] Adverse Reaction (Verified 05/15/19 13:01) hydrocodone bitartrate [From Vicodin] Adverse Reaction (Verified 05/15/19 13:01) Past Medical History - Social History Chew tobacco use (# tins/day): No Frequency of alcohol use: Heavy Drug Abuse: Marijuana Renal/ Medical History: Denies: Hx Peritoneal Dialysis GI Medical History: Reports: Hx Gastritis, Hx Gastroesophageal Reflux Disease, Hx Hiatal Hernia Skin Medical History: Reports Hx Cellulitis, Reports Hx Eczema Psychiatric Medical History: Reports: Hx Bipolar Disorder, Hx Depression Past Surgical History: Reports: Hx Abdominal Surgery - flap to stomach - Immunizations Immunizations up to date: Yes Hx Diphtheria, Pertussis, Tetanus Vaccination: Yes Physical Exam - Vital signs Vitals: Temp Pulse Resp BP Pulse Ox 98.4 F 80 16 118/60 99 05/15/19 13:08 05/15/19 13:08 05/15/19 13:08 05/15/19 13:08 05/15/19 13:08 Course - Vital Signs Vital signs: Temp Pulse Resp BP Pulse Ox 98.4 F 80 16 118/60 99 05/15/19 13:08 05/15/19 13:08 05/15/19 13:08 05/15/19 13:08 05/15/19 13:08
[2019-05-15 13:44] LABS: ABSOLUTE BASOPHILS # (AUTO) 0.1 10^3/uL (0.0-0.2); ABSOLUTE EOSINOPHILS # (AUTO) 0.1 10^3/uL (0.0-0.6); ABSOLUTE LYMPHOCYTES (AUTO) 2.4 10^3/uL (0.5-4.7); ABSOLUTE MONOCYTES (AUTO) 0.8 10^3/uL (0.1-1.4); ABSOLUTE NEUT (AUTO) 8.8 10^3/uL (1.7-8.2); BASOPHILS % (AUTO) 0.6 % (0-2); HEMATOCRIT 46.6 % (36.0-47.0); HEMOGLOBIN 15.4 g/dL (12.0-15.5); LYMPHOCYTES % (AUTO) 19.4 % (13-45); MEAN CORPUSCULAR HEMOGLOBIN 30.3 pg (27.0-33.4); MEAN CORPUSCULAR VOLUME 92 fl (80-97); MONOCYTES % (AUTO) 6.9 % (3-13); PLATELET COUNT 270 10^3/uL (150-450); RED BLOOD COUNT 5.08 10^6/uL (3.72-5.28); RED CELL DISTRIBUTION WIDTH 13.9 % (11.5-14.0); SEGMENTED NEUTROPHILS % (AUTO) 72.1 % (42-78); TOTAL CELLS COUNTED % (AUTO) 100 %; WHITE BLOOD COUNT 12.2 10^3/uL (4.0-10.5)
[2019-05-15 13:49] LABS: APPEARANCE,URINE SLIGHTLY-CLOUDY; BILIRUBIN,URINE NEGATIVE (NEGATIVE); COLOR,URINE YELLOW; GLUCOSE, URINE NEGATIVE (NEGATIVE); KETONES,URINE NEGATIVE (NEGATIVE); LEUKOCYTE ESTERASE,URINE LARGE (NEGATIVE); NITRITE,URINE NEGATIVE (NEGATIVE); PROTEIN,URINE NEGATIVE (NEGATIVE); URINE SPECIFIC GRAVITY 1.014; UROBILINOGEN,URINE NEGATIVE mg/dL (<2.0)
[2019-05-15 14:05] LABS: ALANINE AMINOTRANSFERASE 21 U/L (9-52); ALBUMIN 4.7 g/dL (3.5-5.0); ALKALINE PHOSPHATASE 59 U/L (38-126); ANION GAP 11 (5-19); ASPARTATE AMINO TRANSFERASE 24 U/L (14-36); BILIRUBIN,DIRECT 0.2 mg/dL (0.0-0.4); BILIRUBIN,TOTAL 0.5 mg/dL (0.2-1.3); BLOOD UREA NITROGEN 9 mg/dL (7-20); CALCIUM 9.9 mg/dL (8.4-10.2); CARBON DIOXIDE 27 mmol/L (22-30); CHLORIDE 103 mmol/L (98-107); GLUCOSE 88 mg/dL (75-110); LIPASE 83.7 U/L (23-300); POTASSIUM 4.3 mmol/L (3.6-5.0); SODIUM 140.6 mmol/L (137-145); TOTAL PROTEIN 7.7 g/dL (6.3-8.2)
--- NOTE | 2019-05-15 14:40 | ER Document Report ---
ED General - General Chief Complaint: Abdominal Pain Stated Complaint: ABDOMINAL PAIN Time Seen by Provider: 05/15/19 13:17 Mode of Arrival: Ambulatory Notes: Patient is a 23-year-old female who presents to the emergency department with right upper quadrant abdominal pain. She was seen here in the emergency department 3 days ago and was diagnosed with sludge in her gallbladder. She has had her symptoms for the past 2 weeks. Patient states that she continues to have pain. She has not been vomiting, but states that she has pain in that area. She has change the way she ate and continues to have symptoms. Denies any past medical history, she does not take any medications. Patient called the surgical care clinic and unfortunately due to her not having insurance, she is not able to pay the co-pay to be seen. TRAVEL OUTSIDE OF THE [place] IN LAST 30 DAYS: No - Related Data Allergies/Adverse Reactions: risperidone [From Risperdal] Allergy (Mild, Verified 05/15/19 13:01) cephalexin [From Keflex] Allergy (Verified 05/15/19 13:01) prednisone Allergy (Verified 05/15/19 13:01) acetaminophen [From Tylenol] Adverse Reaction (Verified 05/15/19 13:01) hydrocodone bitartrate [From Vicodin] Adverse Reaction (Verified 05/15/19 13:01) Past Medical History - General Information source: Patient - Social History Smoking Status: Current Every Day Smoker Chew tobacco use (# tins/day): No Frequency of alcohol use: Heavy Drug Abuse: Marijuana Family History: Reviewed & Not Pertinent Patient has suicidal ideation: No Patient has homicidal ideation: No Renal/ Medical History: Denies: Hx Peritoneal Dialysis GI Medical History: Reports: Hx Gastritis, Hx Gastroesophageal Reflux Disease, Hx Hiatal Hernia Skin Medical History: Reports Hx Cellulitis, Reports Hx Eczema Psychiatric Medical History: Reports: Hx Bipolar Disorder, Hx Depression Past Surgical History: Reports: Hx Abdominal Surgery - flap to stomach - Immunizations Immunizations up to date: Yes Hx Diphtheria, Pertussis, Tetanus Vaccination: Yes Review of Systems - Review of Systems Notes: REVIEW OF SYSTEMS: CONSTITUTIONAL : Denies recent illness. Denies recent unintentional weight loss. Denies fever, chills, or sweats. EENT: Denies eye, ear, throat, or mouth pain, discharge, or symptoms. Denies nasal or sinus congestion. CARDIOVASCULAR: Denies chest pain. RESPIRATORY: Denies shortness of breath, cough, congestion, difficulty breathing, or wheezing. GASTROINTESTINAL: See HPI GENITOURINARY: Denies difficulty urinating, burning, blood in urine, urgency or frequency. MUSCULOSKELETAL: Denies neck and back pain. Denies joint pain or swelling. SKIN: Denies rash, itchiness, or lesions HEMATOLOGIC : Denies easy bruising or bleeding. LYMPHATIC: Denies swollen, painful, enlarged glands. NEUROLOGICAL: Denies no numbness or tingling denies weakness. Denies headache. Denies altered mental status. Denies alteration in speech. PSYCHIATRIC: Denies stress, anxiety, alteration in sleep patterns, or depression. All other systems reviewed and negative. Physical Exam - Vital signs Vitals: Temp Pulse Resp BP Pulse Ox 98.4 F 80 16 118/60 99 05/15/19 13:08 05/15/19 13:08 05/15/19 13:08 05/15/19 13:08 05/15/19 13:08 - Notes Notes: PHYSICAL EXAMINATION: GENERAL: Appears well, healthy, well-nourished, no acute distress. HEAD: Normocephalic, atraumatic. EYES: PERRL, conjunctiva normal, all extraocular movements intact, sclera nonicteric ENT: Moist mucous membranes. NECK: Supple, no noticeable swelling, redness, rash. Normal range of motion. LUNGS: Equal breath sounds bilaterally and clear to auscultation. No wheezes rales or rhonchi. CARDIOVASCULAR: S1-S2, regular rate, regular rhythm. Radial pulses 2+, normal. ABDOMEN: Normoactive bowel sounds. Soft, tender right upper quadrant, no guarding, no rebound tenderness, and no masses palpated. EXTREMITIES: Normal strength and range of motion, no pitting or edema. No cyanosis. NEUROLOGICAL: Moves all extremities upon command. Strength 5/5 in all extremities. PSYCH: Normal mood, normal affect. SKIN: Warm, dry. No rash, lesions, ulcerations noted. Normal skin turgor. Course - Re-evaluation Re-evalutation: 05/15/19 14:43 Patient's white blood cell count has risen from 3 days ago. She still has tenderness in the right upper quadrant. Patient also does have a large amount of leukocytes and her urine. 05/15/19 16:33 Still has gallbladder sludge noted on ultrasound. I spoke with Dr. Wiley and he will try to work her into the OR schedule. - Vital Signs Vital signs: Temp Pulse Resp BP Pulse Ox 98.0 F 49 L 18 109/58 L 98 05/16/19 00:28 05/16/19 00:28 05/16/19 00:28 05/16/19 00:28 05/16/19 00:28 - Laboratory Result Diagrams: 05/15/19 13:29 05/15/19 13:29 Laboratory results interpreted by me: 05/15/19 05/15/19 13:29 13:29 WBC 12.2 H Absolute Neutrophils 8.8 H Ur Leukocyte Esterase LARGE H Discharge - Discharge Clinical Impression: Gallbladder sludge Urinary tract infection Qualifiers: Urinary tract infection type: acute cystitis Hematuria presence: without hematuria Qualified Code(s): N30.00 - Acute cystitis without hematuria Condition: Stable Disposition: ADMITTED INPATIENT Admitting Provider: Surgicalist Unit Admitted: Surgical Floor
[2019-05-15] MEDS ORDERED: NORMAL SALINE 1000 ML 1,000 ML IV ONE (14:55)
--- NOTE | 2019-05-15 15:48 | RADIOLOGY REPORT (SQ) ---
EXAM DESCRIPTION: U/S ABDOMEN LIMITED W/O DOP COMPLETED DATE/TIME: 05/15/2019 3:25 pm REASON FOR STUDY: RUQ, epigastric pain COMPARISON: 05/12/2019 TECHNIQUE: Dynamic and static grayscale images acquired of the abdomen and recorded on PACS. Lashell denson selected color Doppler and spectral images recorded. LIMITATIONS: None. FINDINGS: PANCREAS: No masses. Visualized pancreatic duct normal caliber. LIVER: No masses. Echotexture normal. LIVER VASCULATURE: Normal directional flow of the main portal vein and hepatic veins. GALLBLADDER: Gall sludge without discrete stones identified. Normal wall thickness. No pericholecyst ic fluid. ULTRASOUND-DETECTED ST'S SIGN: Negative. INTRAHEPATIC DUCTS AND COMMON DUCT: CBD and intrahepatic ducts normal caliber. No filling defects. INFERIOR VENA CAVA: Normal flow. AORTA: No aneurysm. RIGHT KIDNEY: Normal size. Normal echogenicity. No solid or suspicious masses. No hydronephrosis. No calcifications. PERITONEAL AND RIGHT PLEURAL SPACE: No ascites or effusions. OTHER: No other significant findings. IMPRESSION: Redemonstrated gall sludge without evidence of acute cholecystitis or other ultrasound a bnormality of the right upper quadrant to explain abdominal pain. Consider CT or MRI to further eval uate unexplained abdominal pain. TECHNICAL DOCUMENTATION: JOB ID: [id number] [employer]- All Rights Reserved Reading location - IP/workstation name: [email or web address]
[2019-05-15] MEDS ORDERED: PIPERACILLIN/TAZOBACTAM 3.375 GM VIAL IV ONE (16:35)
[2019-05-15] MEDS ORDERED: RINGERS SOLUTION,LACTATED 1,000 ML IV PRN (19:42)
[2019-05-15] MEDS ORDERED: KETOROLAC TROMETHAMINE INJ/PF 30 MG/1 ML SDV IV PRN (19:43)
--- NOTE | 2019-05-15 20:33 | PDOC H&P ---
History of Present Illness Admission Date/PCP: 05/15/19 16:49 Patient complains of: Abdominal pain History of Present Illness: JOSE L GARCIA is a 23 year old female Presents emergency department via ground rescue complaining of persisting abdominal pain nausea, But no vomiting. She is seen in the emergency department was found to have persisting abdominal pain right upper quadrant tenderness. She was seen for similar symptoms approximately 4 days ago in the emergency department. Gallbladder ultrasound during that visit, as well as today's visit confirmed gallstones. She was discharged home from the emergency department earlier in the week, and sent to [place] [facility] but did not follow-up due to lack of insurance. She is hemodynamically stable and not septic. She wishes to be admitted for definitive management. She is admitted to the surgical service for interval cholecystectomy. Past Medical History Past Medical History: Bipolar and anxiety disorder. Multiple allergies. GI Medical History: Reports: Gastroesophageal Reflux Disease, Hiatal Hernia Skin Medical History: Reports: Eczema Psychiatric Medical History: Reports: Bipolar Disorder, Depression Past Surgical History Past Surgical History: Some sort of gastric procedure, nonoperative, 12 years; details unknown Past Surgical History: Reports: None Social History Smoking Status: Current Every Day Smoker Frequency of Alcohol Use: Rare Hx Recreational Drug Use: No Hx Prescription Drug Abuse: No - Advance Directive Resuscitation Status: Full Code Family History Family History: Reviewed & Not Pertinent Parental Family History Reviewed: No Children Family History Reviewed: No Sibling(s) Family History Reviewed.: No Medication/Allergy Home Medications: Omeprazole 20 mg PO DAILY 05/15/19 Allergies/Adverse Reactions: risperidone [From Risperdal] Allergy (Mild, Verified 05/15/19 13:01) cephalexin [From Keflex] Allergy (Verified 05/15/19 13:01) prednisone Allergy (Verified 05/15/19 13:01) acetaminophen [From Tylenol] Adverse Reaction (Verified 05/15/19 13:01) hydrocodone bitartrate [From Vicodin] Adverse Reaction (Verified 05/15/19 13:01) Review of Systems Constitutional: PRESENT: as per HPI Eyes: ABSENT: visual disturbances Ears: ABSENT: hearing changes Cardiovascular: ABSENT: chest pain, dyspnea on exertion, edema, orthropnea, palpitations Respiratory: ABSENT: cough, hemoptysis Gastrointestinal: PRESENT: as per HPI, other - Patient reports intermittent lo ose stools Musculoskeletal: ABSENT: joint swelling Integumentary: ABSENT: rash, wounds Neurological: ABSENT: abnormal gait, abnormal speech, confusion, dizziness, focal weakness, syncope Psychiatric: PRESENT: other - History of anxiety disorder, history of self injury Hematologic/Lymphatic: ABSENT: easy bleeding, easy bruising Physical Exam Vital Signs: Temp Pulse Resp BP Pulse Ox 98.4 F 60 18 126/69 H 98 05/15/19 18:09 05/15/19 18:09 05/15/19 18:09 05/15/19 18:09 05/15/19 18:09 Intake & Output 05/14/19 05/15/19 05/16/19 06:59 06:59 06:59 Weight 71.4 kg General appearance: PRESENT: no acute distress Head exam: PRESENT: normocephalic Eye exam: PRESENT: EOMI Mouth exam: PRESENT: dry mucosa Neck exam: PRESENT: full ROM Respiratory exam: PRESENT: clear to auscultation pattie Cardiovascular exam: PRESENT: RRR Pulses: PRESENT: normal carotid pulses, normal radial pulses, normal femoral pulses, normal dorsalis pedis pul GI/Abdominal exam: PRESENT: other - Soft, no peritoneal signs no rigidity there is some right upper quadrant tenderness with minimal guarding. Rectal exam: PRESENT: deferred Extremities exam: PRESENT: full ROM Musculoskeletal exam: PRESENT: full ROM Neurological exam: PRESENT: awake, oriented to person, oriented to time, oriented to situation Psychiatric exam: PRESENT: appropriate affect Skin exam: PRESENT: intact Results Laboratory Results: 05/15/19 13:29 05/15/19 13:29 05/15/19 05/15/19 05/15/19 13:29 13:29 13:29 WBC 12.2 H RBC 5.08 Hgb 15.4 Hct 46.6 MCV 92 MCH 30.3 MCHC 33.0 RDW 13.9 Plt Count 270 Seg Neutrophils % 72.1 Lymphocytes % 19.4 Monocytes % 6.9 Eosinophils % 1.0 Basophils % 0.6 Absolute Neutrophils 8.8 H Absolute Lymphocytes 2.4 Absolute Monocytes 0.8 Absolute Eosinophils 0.1 Absolute Basophils 0.1 Sodium 140.6 Potassium 4.3 Chloride 103 Carbon Dioxide 27 Anion Gap 11 BUN 9 Creatinine 0.75 Est GFR ( Amer) > 60 Est GFR (Non-Af Amer) > 60 Glucose 88 Calcium 9.9 Total Bilirubin 0.5 AST 24 ALT 21 Alkaline Phosphatase 59 Total Protein 7.7 Albumin 4.7 Lipase 83.7 Urine Color YELLOW Urine Appearance SLIGHTLY-CLOUDY Urine pH 8.0 Ur Specific [place] 1.014 Urine Protein NEGATIVE Urine Glucose (UA) NEGATIVE Urine Ketones NEGATIVE Urine Blood NEGATIVE Urine Nitrite NEGATIVE Ur Leukocyte Esterase LARGE H Urine WBC (Auto) 2 Urine RBC (Auto) 1 Impressions: Abdomen Ultrasound 05/15/19 13:25 IMPRESSION: Redemonstrated gall sludge without evidence of acute cholecystitis or other ultrasound abnormality of the right upper quadrant to explain abdominal pain. Consider CT or MRI to further evaluate unexplained abdominal pain. Assessment & Plan - Diagnosis (1) Cholelithiasis with chronic cholecystitis Is this a current diagnosis for this admission?: Yes Plan: Impression: Recurrent symptomatic cholelithiasis with cholecystitis and otherwise healthy 23-year-old female with normal liver function studies. Recommendations: 1. Admit to the surgical service, keep n.p.o. IV fluids and intravenous antibiotics. 2. Anticipate interval cholecystectomy, laparoscopic versus open, Dr. Torres, Saturday, May 16. I have provisionally reviewed the mechanics of the operation and expected course. This will discussed further tomorrow. (2) Smoker Is this a current diagnosis for this admission?: Yes (3) History of bipolar disorder Is this a current diagnosis for this admission?: Yes - Time Time Spent: 30 to 50 Minutes Smoking Cessation Education: over 10 minutes Medications reviewed and adjusted accordingly: Yes Anticipated discharge: Home - Inpatient Certification Based on my medical assessment, after consideration of the patient's comorbidities, presenting symptoms, or acuity I expect that the services needed warrant INPATIENT care.: Yes I certify that my determination is in accordance with my understanding of Medicare's requirements for reasonable and necessary INPATIENT services [42 CFR 412.3e].: Yes Medical Necessity: Need for Pain Control, Need for IV Antibiotics, Need for Surgery
[2019-05-15] MEDS: NORMAL SALINE 1000 ML 1,000 ML IV PRN (23:10)
[2019-05-15] MEDS: KETOROLAC TROMETHAMINE INJ/PF 30 MG/1 ML SDV IV PRN (23:24)
[2019-05-15] MEDS ORDERED: NICOTINE 21 MG/24 HR PATCH.TD24 TD ONE (23:45)
[2019-05-16] MEDS: PIPERACILLIN SODIUM/TAZOBACTAM 3.375 GM in NORMAL SALINE 100 ML IV SCH ×2 (01:45→11:11)
[2019-05-16] MEDS: NORMAL SALINE 1000 ML 1,000 ML IV PRN (06:11)
[2019-05-16] MEDS: KETOROLAC TROMETHAMINE INJ/PF 30 MG/1 ML SDV IV PRN (06:25)
[2019-05-16] MEDS ORDERED: FENTANYL CITRATE INJ/PF 250 MCG/5 ML AMPULE ONE (08:12)
[2019-05-16] MEDS ORDERED: PROPOFOL INJ 200 MG/20 ML VIAL IV ONE (08:13)
[2019-05-16] MEDS ORDERED: HYDROMORPHONE HCL INJ/PF 2 MG/ML AMPULE ONE (08:13)
[2019-05-16] MEDS ORDERED: MIDAZOLAM 2 MG/2 ML INJ ONE (08:13)
[2019-05-16] MEDS ORDERED: LIDOCAINE 2% INJ-PF (100 MG/5 ML) SYRINGE ONE (08:13)
[2019-05-16] MEDS ORDERED: BUPIVACAINE HCL 0.25 % INJ/PF (2.5 MG/1 ML) 30 ML VIAL ONE (08:21)
[2019-05-16] MEDS ORDERED: NICOTINE 21 MG/24 HR PATCH.TD24 TD SCH (10:00)
--- NOTE | 2019-05-16 10:11 | PDOC PROGRESS REPORT ---
Subjective Progress Note for:: 05/16/19 Subjective:: 24-year-old female with sharp, stabbing, unrelenting right upper quadrant pain. Patient was diagnosed with acute cholecystitis and admitted to the hospital. She reports pain this morning. She denies any fevers, chills, chest pain, shortness of breath, dizziness, orthostasis, hematemesis, blurry vision. Reason For Visit: CHOLECYSTITIS WITH CHOLELITHIASIS Physical Exam Vital Signs: Temp Pulse Resp BP Pulse Ox 98.2 F 74 18 136/71 H 97 05/16/19 08:08 05/16/19 08:08 05/16/19 08:08 05/16/19 08:08 05/16/19 08:08 Intake & Output 05/15/19 05/16/19 05/17/19 06:59 06:59 06:59 Intake Total 1100 Balance 1100 Weight 71.4 kg General appearance: PRESENT: no acute distress, cooperative Head exam: PRESENT: atraumatic, normocephalic Eye exam: PRESENT: EOMI, PERRLA. ABSENT: scleral icterus Mouth exam: PRESENT: moist, neck supple Neck exam: ABSENT: meningismus, tenderness, thyromegaly, tracheal deviation Respiratory exam: PRESENT: clear to auscultation pattie, unlabored. ABSENT: chest wall tenderness, tachypnea Cardiovascular exam: PRESENT: RRR Vascular exam: PRESENT: normal capillary refill. ABSENT: pallor GI/Abdominal exam: PRESENT: tenderness - Right upper quadrant. ABSENT: distended, firm, rebound Rectal exam: PRESENT: deferred Extremities exam: ABSENT: clubbing Musculoskeletal exam: ABSENT: deformity Neurological exam: PRESENT: alert, awake, oriented to person, oriented to place, oriented to time, oriented to situation, CN II-XII grossly intact. ABSENT: motor sensory deficit Psychiatric exam: ABSENT: agitated, anxious, depressed Focused psych exam: ABSENT: delusional Skin exam: ABSENT: cyanosis, erythema, jaundice Results Laboratory Results: 05/15/19 13:29 05/15/19 13:29 05/15/19 05/15/19 05/15/19 13:29 13:29 13:29 WBC 12.2 H RBC 5.08 Hgb 15.4 Hct 46.6 MCV 92 MCH 30.3 MCHC 33.0 RDW 13.9 Plt Count 270 Seg Neutrophils % 72.1 Lymphocytes % 19.4 Monocytes % 6.9 Eosinophils % 1.0 Basophils % 0.6 Absolute Neutrophils 8.8 H Absolute Lymphocytes 2.4 Absolute Monocytes 0.8 Absolute Eosinophils 0.1 Absolute Basophils 0.1 Sodium 140.6 Potassium 4.3 Chloride 103 Carbon Dioxide 27 Anion Gap 11 BUN 9 Creatinine 0.75 Est GFR ( Amer) > 60 Est GFR (Non-Af Amer) > 60 Glucose 88 Calcium 9.9 Total Bilirubin 0.5 AST 24 ALT 21 Alkaline Phosphatase 59 Total Protein 7.7 Albumin 4.7 Lipase 83.7 Urine Color YELLOW Urine Appearance SLIGHTLY-CLOUDY Urine pH 8.0 Ur Specific [place] 1.014 Urine Protein NEGATIVE Urine Glucose (UA) NEGATIVE Urine Ketones NEGATIVE Urine Blood NEGATIVE Urine Nitrite NEGATIVE Ur Leukocyte Esterase LARGE H Urine WBC (Auto) 2 Urine RBC (Auto) 1 Impressions: Abdomen Ultrasound 05/15/19 13:25 IMPRESSION: Redemonstrated gall sludge without evidence of acute cholecystitis or other ultrasound abnormality of the right upper quadrant to explain abdominal pain. Consider CT or MRI to further evaluate unexplained abdominal pain. Assessment & Plan - Diagnosis (1) Acute cholecystitis Is this a current diagnosis for this admission?: Yes - Plan Summary Plan Summary: This is a 23-year-old female admitted with acute cholecystitis. She has been on Zosyn. She is scheduled for cholecystectomy today. Risks/benefits discussed, informed consent obtained, and all questions answered.
--- NOTE | 2019-05-16 10:15 | Operative Report ---
Nonrecallable Operative Report DATE OF SURGERY: 05/16/19 PREOPERATIVE DIAGNOSIS: Acute cholecystitis POSTOPERATIVE DIAGNOSIS: Acute and chronic cholecystitis OPERATION: Laparoscopic cholecystectomy SURGEON: CHRISTOPHER CHAVEZ ANESTHESIA: GA TISSUE REMOVED OR ALTERED: Gallbladder COMPLICATIONS: None apparent ESTIMATED BLOOD LOSS: Minimal PROCEDURE: Drains/implants: None. Procedure in detail: After informed consent was obtained, the patient was brought to the operating room and laid in the supine position. The area of the abdomen was prepped and draped in a normal sterile fashion. A curvilinear infraumbilical incision was created with a 15 blade scalpel. Dissection was carried through the subcutaneous tissue using sharp and blunt dissection. The cicatrix was identified, grasped with a Alvaro clamp, and retracted upwards. The linea alba fascia was incised sharply, the abdomen was entered sharply. The balloon trocar was inserted, and pneumoperitoneum was achieved. A subxiphoid 5 mm port was placed under direct laparoscopic visualization. 2 more 5 mm ports were placed in the right upper quadrant in similar fashion. Atraumatic graspers were placed through the 5 mm ports. The gallbladder was retracted cephalad and laterally. Dissection was begun in the triangle of [place]. There was acute and chronic inflammation present at the infundibulum of the gallbladder. The cystic duct and cystic artery were fully visualized and skeletonized, seeing the liver through the triangle. Once the critical view of safety was obtained, the cystic duct and cystic artery were clipped and cut with laparoscopic instruments. The gallbladder was then removed from the liver using Bovie electrocautery. The gallbladder was grasped with a large clamp, and removed from the umbilicus. The camera was reinserted. The hilum was inspected. It was found to be free of any leakage of blood or bile. Once this was confirmed, the 5 mm trochars were removed under direct laparoscopic visualization. The infraumbilical trocar was removed, and pneumoperitoneum was relieved. The infraumbilical fascia was closed using 0 Vicryl suture in [id number] fashion. The overlying skin was closed using 4-0 Vicryl Rapide suture in subcuticular fashion. Dressings were placed, and the procedure was concluded. All sponge, instrument, and needle counts were correct x2. Condition: Stable.
[2019-05-16] MEDS ORDERED: PROMETHAZINE HCL INJ 25 MG/1 ML VIAL IV PRN ×2 (10:16)
[2019-05-16] MEDS ORDERED: MORPHINE SULFATE 10 MG/ML INJ IV PRN (10:16)
[2019-05-16] MEDS ORDERED: DIPHENHYDRAMINE HCL 50 MG/ML VIAL IV PRN (10:16)
[2019-05-16] MEDS ORDERED: FENTANYL CITRATE INJ/PF 100 MCG/2 ML AMPUL IV PRN ×3 (10:16)
[2019-05-16] MEDS ORDERED: MEPERIDINE HCL/PF INJ 25 MG/1 ML DISP.SYRIN IV PRN (10:16)
[2019-05-16] MEDS: PROMETHAZINE HCL INJ 25 MG/1 ML VIAL ONE ×2 (10:40→10:45)
[2019-05-16] MEDS: OXYCODONE HCL IR 5 MG TABLET PO PRN ×2 (11:45→16:23)
[2019-05-16] MEDS ORDERED: KETOROLAC TROMETHAMINE INJ/PF 30 MG/1 ML SDV IV SCH (14:00)
[2019-05-16] MEDS ORDERED: ROCURONIUM BROMIDE INJ 50 MG/5 ML VIAL IV ONE (14:57)
[2019-05-16] MEDS ORDERED: KETOROLAC TROMETHAMINE 60 MG/2 ML SDV ONE (14:57)
[2019-05-16] MEDS ORDERED: NEOSTIGMINE METHYLSULFATE 10 MG/10 ML VIAL ONE (14:57)
[2019-05-16] MEDS ORDERED: GLYCOPYRROLATE 1 MG/5 ML VIAL ONE (14:57)
[2019-05-16] MEDS ORDERED: ONDANSETRON HCL INJ/PF 4 MG/2 ML SDV ONE (14:57)
[2019-05-16] MEDS ORDERED: SUCCINYLCHOLINE CHLORIDE INJ 200 MG/10 ML VIAL ONE (14:57)
--- NOTE | 2019-05-16 18:08 | PDOC DISCHARGE SUMMARY ---
General - Admit/Disc Date/PCP Admission Date/Primary Care Provider: 05/15/19 16:49 Discharge Date: 05/16/19 - Discharge Diagnosis (1) Acute cholecystitis Is this a current diagnosis for this admission?: Yes - Additional Information Resuscitation Status: Full Code Discharge Diet: As Tolerated Discharge Activity: No Lifting Over 10 Pounds Home Medications: Omeprazole 20 mg PO DAILY 05/15/19 History of Present Illness History of Present Illness: JOSE L GARCIA is a 23 year old female admitted to the hospital with right upper quadrant pain, consistent with acute cholecystitis. She was admitted to the hospital and started on intravenous antibiotics. Hospital Course Hospital Course: The patient was taken to the operating room for laparoscopic cholecystectomy. This was performed successfully. The patient was taken back to the floor in stable condition. The patient began ambulating, tolerating a diet, and her pain was controlled with oral pain medications. At this time it is felt that she has reached maximal hospital benefit, and is fit for discharge. Physical Exam Vital Signs: Temp Pulse Resp BP Pulse Ox 97.9 F 62 16 110/70 100 05/16/19 12:30 05/16/19 13:30 05/16/19 13:30 05/16/19 13:30 05/16/19 13:30 Intake & Output 05/15/19 05/16/19 05/17/19 06:59 06:59 06:59 Intake Total 1100 1600 Balance 1100 1600 Weight 71.4 kg Results Laboratory Results: 05/15/19 13:29 05/15/19 13:29 Impressions: Abdomen Ultrasound 05/15/19 13:25 IMPRESSION: Redemonstrated gall sludge without evidence of acute cholecystitis or other ultrasound abnormality of the right upper quadrant to explain abdominal pain. Consider CT or MRI to further evaluate unexplained abdominal pain. Qualifiers - * PATIENT BEING DISCHARGED WITH ANY OF THE FOLLOWING DIAGNOSIS: No Acute Heart Failure - Is this a Heart Failure Patient?: No Plan Discharge Plan: Discharge home. Diet as tolerated. Activity: No lifting greater than 10 pounds x 2 weeks. Follow-up with me in 7 to 10 days. Okay to shower starting Saturday. No tub baths or swimming pools x2 weeks. Time Spent: Less than 30 Minutes
[2019-05-16 18:49] VITALS: BP 126/69
[2019-05-16] MEDS ORDERED: FAMOTIDINE 20 MG TABLET PO SCH (22:00)
== END 2019-05-16 19:00 | disposition home or self-care (01) ==
LOC: ER 13:00 → INTOOBSV 16:49 → EH 16:49 → 2N 19:19
PROVIDERS: ADMIT Surgery; ATTEND Surgery
PROC: HZ31ZZZ Individual Counseling for Substance Abuse Treatment, Behavioral (ICD-10-PCS; 2019-05-15)
PROC: 0FT44ZZ Resection of Gallbladder, Percutaneous Endoscopic Approach (ICD-10-PCS; principal; 2019-05-16 08:30)
DX: K81.1 Chronic cholecystitis (principal); K82.8 Other specified diseases of gallbladder; N30.00 Acute cystitis without hematuria; K21.9 Gastro-esophageal reflux disease without esophagitis; F17.200 Nicotine dependence, unspecified, uncomplicated; F12.10 Cannabis abuse, uncomplicated; Z86.59 Personal history of other mental and behavioral disorders; Z98.890 Other specified postprocedural states; Z87.19 Personal history of other diseases of the digestive system
CPT/HCPCS: 99285; 96360; 36415; 87086; 83690; 85025; 81025; 80053; 81001; 88304 ×2; 76705; 00790; 99407; 47562; G0378 ×2; J2250; J3490 ×2; J1885 ×3; J3010; J2001; J2710; J2550; J0330; J2405; J7050; J7030 ×2; J2704; J2543 ×2; 790; J1170

== ENCOUNTER 2019-05-31 14:36 | Emergency (ER) | payer OTHER ==
[2019-05-31] MEDS ORDERED: KETOROLAC TROMETHAMINE INJ/PF 30 MG/1 ML SDV IV ONE (16:21)
[2019-05-31] MEDS ORDERED: METOCLOPRAMIDE HCL INJ/PF 10 MG/2 ML SDV IV ONE (16:21)
[2019-05-31] MEDS ORDERED: NORMAL SALINE 1000 ML 1,000 ML IV ONE (16:21)
[2019-05-31] MEDS ORDERED: DIPHENHYDRAMINE HCL 50 MG/ML VIAL IV ONE (16:21)
--- NOTE | 2019-05-31 16:28 | ER Document Report ---
ED Headache - General Chief Complaint: Headache Stated Complaint: HEADACHE Time Seen by Provider: 05/31/19 16:07 Notes: Patient is a 23-year-old female with a history of migraines who presents to the emergency department with headache. Patient states that on Saturday she developed a migraine headache that has been waxing and waning. Patient states this does feel like her normal migraine headaches. Patient states she used to be prescribed a benzodiazepine for her migraines but since losing insurance she has not been able to go back to her psychiatrist. Patient states that she will wake up in the morning with no headache and gradually throughout the day she develops a frontal headache that wraps around into the posterior head and upper neck. Patient states that when she puts pressure to the back of her head it feels better. Patient has not tried any medication at home for this. Patient states she was recently seen by the eye doctor and is waiting on prescription glasses to come in the mail. Patient states she is unsure if the decrease in visual acuity is causing the headaches. Patient states she has felt a little dizzy and drained. Patient states she has had adequate hydration. Patient states she is light sensitive. Patient states she also had her gallbladder removed on May 16 at this hospital. Patient states she did follow-up with [facility] this past Saturday and was told to remove the Steri-Strips. Janna nt states she did remove the Steri-Strips and did notice that 1 of the incisions was slightly open and she reports a yellow discharge from it yesterday. Patient denies fevers. Patient reports intermittent left upper quadrant and right mid abdominal pain Patient states that when she was seen here for surgery she was told she had a UTI but was not placed on antibiotics to go home with. - Related Data Allergies/Adverse Reactions: risperidone [From Risperdal] Allergy (Mild, Verified 05/31/19 14:36) cephalexin [From Keflex] Allergy (Verified 05/31/19 14:36) prednisone Allergy (Verified 05/31/19 14:36) acetaminophen [From Tylenol] Adverse Reaction (Verified 05/31/19 14:36) hydrocodone bitartrate [From Vicodin] Adverse Reaction (Verified 05/31/19 14:36) Past Medical History - General Information source: Patient - Social History Smoking Status: Current Every Day Smoker Cigarette use (# per day): Yes - 1/2 ppd Chew tobacco use (# tins/day): No Smoking Education Provided: Yes Frequency of alcohol use: Social Drug Abuse: Marijuana Lives with: Family Family History: Reviewed & Not Pertinent - Past Medical History Cardiac Medical History: Reports: None Pulmonary Medical History: Reports: None EENT Medical History: Reports: None Neurological Medical History: Reports: Hx Migraine Endocrine Medical History: Reports: None Renal/ Medical History: Reports: None. Denies: Hx Peritoneal Dialysis Malignancy Medical History: Reports: None GI Medical History: Reports: Hx Gastritis, Hx Gastroesophageal Reflux Disease, Hx Hiatal Hernia Musculoskeletal Medical History: Reports None Skin Medical History: Reports Hx Cellulitis, Reports Hx Eczema Psychiatric Medical History: Reports: Hx Bipolar Disorder, Hx Depression Traumatic Medical History: Reports: None Infectious Medical History: Reports: None Past Surgical History: Reports: Hx Abdominal Surgery - flap to stomach - Immunizations Immunizations up to date: Yes Hx Diphtheria, Pertussis, Tetanus Vaccination: Yes Review of Systems - Review of Systems Constitutional: See HPI EENT: See HPI Cardiovascular: No symptoms reported Respiratory: No symptoms reported Gastrointestinal: See HPI Genitourinary: No symptoms reported Female Genitourinary: No symptoms reported Musculoskeletal: No symptoms reported Skin: No symptoms reported Hematologic/Lymphatic: No symptoms reported Neurological/Psychological: No symptoms reported Physical Exam - Vital signs Vitals: Temp Pulse Resp BP Pulse Ox 98.8 F 103 H 16 118/65 96 05/31/19 14:43 05/31/19 14:43 05/31/19 14:43 05/31/19 14:43 05/31/19 14:43 Interpretation: Tachycardic - Notes Notes: GENERAL: Well-appearing, well-nourished and in no acute distress. HEAD: Atraumatic, normocephalic. EYES: Pupils equal round and reactive to light, extraocular movements intact, sclera anicteric, conjunctiva are normal. ENT: TMs normal, nares patent, oropharynx clear without exudates. Moist mucous membranes. NECK: Normal range of motion, supple without lymphadenopathy or JVD. LUNGS: Breath sounds clear to auscultation bilaterally and equal. No wheezes rales or rhonchi. HEART: Regular rate and rhythm without murmurs, rubs or gallops. ABDOMEN: Soft, nontender, normoactive bowel sounds. No guarding, no rebound. No masses appreciated. Umbilical incision healed and intact. Patient has epigastric laparoscopic wound that is scabbed over with no drainage, patient has two RUQ laparoscopic sites - the most lateral incision is scabbed over without drainage, the medial laparoscopic site is open and measures about a 1/2 cm - with no drainage noted, slight redness around the area consistent with wound healing. No surrounding cellulitis. BACK: No cervical, thoracic, lumbar midline tenderness. No saddle anesthesia, normal distal neurovascular exam. No CVA tenderness. GENITOURINARY: Deferred. EXTREMITIES: Normal range of motion, no pitting or edema. No clubbing or cyanosis. NEUROLOGICAL: Cranial nerves II through XII grossly intact. Normal speech, norm al gait. PSYCH: Normal mood, normal affect. SKIN: Warm, Dry, normal turgor, no rashes or lesions noted. Course - Re-evaluation Re-evalutation: 05/31/19 16:32 Upon initial assessment patient resting comfortably on stretcher and in no acute distress. Patient is nontoxic-appearing. The abdominal surgical sites appear to be appropriately healing without obvious signs of abscess, cellulitis or infection. I will obtain basic labs as well as a urine specimen as the patient states she was diagnosed with a urinary tract infection before surgery and was not given any antibiotics at discharge. Patient states her headache feels like a normal migraine. I will give the patient a migraine cocktail while in the emergency department. 05/31/19 18:14 Patient reports that her headache is completely gone. Patient denies any nausea or visual changes. Patient has been tolerating p.o. without difficulty. I did reevaluate the patient's abdomen which remains soft and nontender. There is no drainage coming from the lap sites. I did inform the patient that it does appear to be healing appropriately and that the wound she was specifically concerned about seem to be granulated healing tissue. I did inform the patient to follow-up with [facility] if she has significant drainage from the site, increased redness around the site, fever or any severe abdominal pain. I did inform the patient that if she was unable to get in with [facility] to seek medical attention in the emergency department. Patient verbalized unders tanding and feels comfortable going home. - Vital Signs Vital signs: Temp Pulse Resp BP Pulse Ox 98.0 F 63 16 103/57 L 100 05/31/19 18:04 05/31/19 18:04 05/31/19 18:04 05/31/19 18:04 05/31/19 18:04 - Laboratory Result Diagrams: 05/31/19 16:50 05/31/19 16:50 Laboratory results interpreted by me: 05/31/19 05/31/19 16:50 16:50 WBC 13.3 H Absolute Neutrophils 9.1 H Urine Ascorbic Acid 40 H Patient had a small elevation in her white blood cells. Patient does not have a urinary tract infection. Electrolytes and CMP within normal limits. Discharge - Discharge Clinical Impression: Pain at surgical site, Nausea Migraine Qualifiers: Migraine type: unspecified Status migrainosus presence: without status migrainosus Intractability: not intractable Qualified Code(s): G43.909 - Migraine, unspecified, not intractable, without status migrainosus Condition: Stable Disposition: HOME, SELF-CARE Instructions: Antinausea Medication ([facility]), Headache ([facility]), Use of Diphenhydram ine, Toradol Injection ([facility]), Reglan ([facility]) Additional Instructions: Today you were seen in the emergency department for a migraine headache and concern about 1 of your recent surgical site incisions. The surgical site appears to be benign at this time and does appear to be appropriately healing. Over the next few days he will notice slight redness around the area and itching which is the tissue and skin healing. If you notice increased redness with significant drainage and pus please call [facility] for further evaluation. If you do develop severe abdominal pain, fever or any other concerning signs or symptoms please report back to the emergency department for reevaluation. Today we did recheck your urine which does not show a urinary tract infection. Your migraine headache has improved after receiving medications. Please continue to hydrate appropriately. I have referred you to the [facility] as well as the [facility] who helps people who do not have insurance. You may want to make an appointment with them for follow-up regarding her migraine headaches. Please seek medical attention if you develop severe headache, neck pain, neck stiffness, inability to move your neck or any other concerning signs or symptoms. Migraine Headache The physician feels that your symptoms are due to a migraine attack. Migraines are caused by changes in the blood vessels of the head. Arteries go into spasm, often causing warning symptoms that a headache may begin soon. As the spasm goes away, the vessels dilate and throb, causing the pounding pain of a migraine headache. Migraines often cause nausea and vomiting. The treatment of headaches varies with severity and cause of pain. Not all headaches need pain shots -- in fact, there is evidence that using narcotics for headaches may make them worse in the long run. The physician will determine the therapy that's in your best interest for this particular headache. Medications are available that may prevent migraines, or stop them as they first occur. If one medication is not helpful, try another. If migraines are frequent, be patient -- follow the doctor's recommendations. Call the physician if you are worsening, or if new symptoms arise. Forms: Smoking Cessation Education Referrals: [facility] [Outside] - Follow up as needed [facility] [Provider Group] - Follow up as needed
[2019-05-31 17:19] LABS: APPEARANCE,URINE CLEAR; BILIRUBIN,URINE NEGATIVE (NEGATIVE); COLOR,URINE YELLOW; GLUCOSE, URINE NEGATIVE (NEGATIVE); KETONES,URINE NEGATIVE (NEGATIVE); LEUKOCYTE ESTERASE,URINE NEGATIVE (NEGATIVE); NITRITE,URINE NEGATIVE (NEGATIVE); PROTEIN,URINE NEGATIVE (NEGATIVE); URINE SPECIFIC GRAVITY 1.019; UROBILINOGEN,URINE NEGATIVE mg/dL (<2.0)
[2019-05-31 17:33] LABS: ALANINE AMINOTRANSFERASE 22 U/L (9-52); ALBUMIN 4.8 g/dL (3.5-5.0); ALKALINE PHOSPHATASE 75 U/L (38-126); ANION GAP 13 (5-19); ASPARTATE AMINO TRANSFERASE 26 U/L (14-36); BILIRUBIN,DIRECT 0.2 mg/dL (0.0-0.4); BILIRUBIN,TOTAL 0.4 mg/dL (0.2-1.3); BLOOD UREA NITROGEN 13 mg/dL (7-20); CALCIUM 9.9 mg/dL (8.4-10.2); CARBON DIOXIDE 22 mmol/L (22-30); CHLORIDE 104 mmol/L (98-107); GLUCOSE 92 mg/dL (75-110); LIPASE 142.6 U/L (23-300); POTASSIUM 4.4 mmol/L (3.6-5.0); SODIUM 139.1 mmol/L (137-145); TOTAL PROTEIN 7.7 g/dL (6.3-8.2)
[2019-05-31 17:46] LABS: ABSOLUTE BASOPHILS # (AUTO) 0.1 10^3/uL (0.0-0.2); ABSOLUTE EOSINOPHILS # (AUTO) 0.3 10^3/uL (0.0-0.6); ABSOLUTE MONOCYTES (AUTO) 0.9 10^3/uL (0.1-1.4); ABSOLUTE NEUT (AUTO) 9.1 10^3/uL (1.7-8.2); BASOPHILS % (AUTO) 0.5 % (0-2); EOSINOPHILS % (AUTO) 1.9 % (0-6); HEMATOCRIT 46.7 % (36.0-47.0); HEMOGLOBIN 15.3 g/dL (12.0-15.5); LYMPHOCYTES % (AUTO) 22.6 % (13-45); MEAN CORPUSCULAR HEMOGLOBIN 30.2 pg (27.0-33.4); MEAN CORPUSCULAR HGB CONC 32.8 g/dL (32.0-36.0); MEAN CORPUSCULAR VOLUME 92 fl (80-97); MONOCYTES % (AUTO) 6.4 % (3-13); PLATELET COUNT 295 10^3/uL (150-450); RED BLOOD COUNT 5.08 10^6/uL (3.72-5.28); RED CELL DISTRIBUTION WIDTH 13.8 % (11.5-14.0); SEGMENTED NEUTROPHILS % (AUTO) 68.6 % (42-78); TOTAL CELLS COUNTED % (AUTO) 100 %; WHITE BLOOD COUNT 13.3 10^3/uL (4.0-10.5)
[2019-05-31 18:06] VITALS: BP 103/57
== END 2019-05-31 18:38 | disposition home or self-care (01) ==
LOC: ER 14:36
DX: G43.909 Migraine, unspecified, not intractable, without status migrainosus (principal); R11.0 Nausea; R42 Dizziness and giddiness; H53.149 Visual discomfort, unspecified; R10.11 Right upper quadrant pain; R10.9 Unspecified abdominal pain; D72.829 Elevated white blood cell count, unspecified; F17.210 Nicotine dependence, cigarettes, uncomplicated; F12.10 Cannabis abuse, uncomplicated; Z98.890 Other specified postprocedural states; Z88.8 Allergy status to other drugs, medicaments and biological substances; Z88.1 Allergy status to other antibiotic agents
CPT/HCPCS: 99283; 96361; 96374; 96375; 36415; 83690; 85025; 81025; 80053; 81001; J1200; J1885; J2765; J7030

== ENCOUNTER 2019-08-20 19:39 | Emergency (ER) | payer OTHER ==
--- NOTE | 2019-08-20 20:06 | ER Document Report ---
ED Medical Screen (RME) - General Chief Complaint: Cough Stated Complaint: FEVER,CHEST PAIN WITH COUGH Time Seen by Provider: 08/20/19 20:03 Mode of Arrival: Ambulatory Information source: Patient Notes: This 23-year-old female presents emergency department with sore throat fever and cough. Reports symptoms for the past 2 days. Reports she just went back to work after being on medical leave and everybody at work has strep and bronchitis. Respiratory rate even unlabored. Good airway. I have greeted and performed a rapid initial assessment of this patient. A comprehensive ED assessment and evaluation of the patient, analysis of test results and completion of the medical decision making process will be conducted by additional ED providers. Dictation of this chart was performed using voice recognition software; therefore, there may be some unintended grammatical errors. TRAVEL OUTSIDE OF THE [place] IN LAST 30 DAYS: No - Related Data Allergies/Adverse Reactions: risperidone [From Risperdal] Allergy (Mild, Verified 05/31/19 14:36) cephalexin [From Keflex] Allergy (Verified 05/31/19 14:36) prednisone Allergy (Verified 05/31/19 14:36) acetaminophen [From Tylenol] Adverse Reaction (Verified 05/31/19 14:36) hydrocodone bitartrate [From Vicodin] Adverse Reaction (Verified 05/31/19 14:36) Past Medical History Neurological Medical History: Reports: Hx Migraine Renal/ Medical History: Denies: Hx Peritoneal Dialysis GI Medical History: Reports: Hx Gastritis, Hx Gastroesophageal Reflux Disease, Hx Hiatal Hernia Skin Medical History: Reports Hx Cellulitis, Reports Hx Eczema Psychiatric Medical History: Reports: Hx Bipolar Disorder, Hx Depression Past Surgical History: Reports: Hx Abdominal Surgery - flap to stomach, Hx Cholecystectomy - Immunizations Immunizations up to date: Yes Hx Diphtheria, Pertussis, Tetanus Vaccination: Yes Physical Exam - Vital signs Vitals: Temp Pulse Resp BP Pulse Ox 98.5 F 101 H 18 123/72 97 08/20/19 19:44 08/20/19 19:44 08/20/19 19:44 08/20/19 19:44 08/20/19 19:44 Course - Vital Signs Vital signs: Temp Pulse Resp BP Pulse Ox 98.5 F 101 H 18 123/72 97 08/20/19 19:44 08/20/19 19:44 08/20/19 19:44 08/20/19 19:44 08/20/19 19:44
--- NOTE | 2019-08-20 20:59 | RADIOLOGY REPORT (SQ) ---
XR CHEST 2 VIEWS CLINICAL STATEMENT: cough fever COMPARISON: None FINDINGS: Cardiomediastinal silhouette is within normal limits. There is no focal lung consolidation or pleural effusion. No evidence of pulmonary edema or pneumothorax. IMPRESSION: No acute cardiopulmonary disease.
--- NOTE | 2019-08-20 23:16 | ER Document Report ---
ED General - General Chief Complaint: Cold Symptoms Stated Complaint: FEVER,CHEST PAIN WITH COUGH Time Seen by Provider: 08/20/19 20:03 Mode of Arrival: Ambulatory TRAVEL OUTSIDE OF THE [place] IN LAST 30 DAYS: No - HPI Notes: 21-year-old female who presents with "possible strep throat". Patient describes several days of cough congestion body aches and sore throat. She just went back to work and is concerned she may have gotten it from work. Moderate intensity, gradual onset, nonradiating. No other modifying factors, no other associated symptoms, no other provocative or palliative factors. - Related Data Allergies/Adverse Reactions: risperidone [From Risperdal] Allergy (Mild, Verified 05/31/19 14:36) cephalexin [From Keflex] Allergy (Verified 05/31/19 14:36) prednisone Allergy (Verified 05/31/19 14:36) acetaminophen [From Tylenol] Adverse Reaction (Verified 05/31/19 14:36) hydrocodone bitartrate [From Vicodin] Adverse Reaction (Verified 05/31/19 14:36) Past Medical History - General Information source: Patient - Social History Smoking Status: Current Every Day Smoker Frequency of alcohol use: None Drug Abuse: Marijuana Family History: Reviewed & Not Pertinent Patient has suicidal ideation: No Patient has homicidal ideation: No - Medical History Notes: Prior cholecystectomy Neurological Medical History: Reports: Hx Migraine Renal/ Medical History: Denies: Hx Peritoneal Dialysis GI Medical History: Reports: Hx Gastritis, Hx Gastroesophageal Reflux Disease, Hx Hiatal Hernia Skin Medical History: Reports Hx Cellulitis, Reports Hx Eczema Psychiatric Medical History: Reports: Hx Bipolar Disorder, Hx Depression Past Surgical History: Reports: Hx Abdominal Surgery - flap to stomach, Hx Cholecystectomy - Immunizations Immunizations up to date: Yes Hx Diphtheria, Pertussis, Tetanus Vaccination: Yes Review of Systems - Review of Systems Notes: Review of systems as in the history of present illness, otherwise negative x 10 systems. Physical Exam - Vital signs Vitals: Temp Pulse Resp BP Pulse Ox 98.5 F 101 H 18 123/72 97 08/20/19 19:44 08/20/19 19:44 08/20/19 19:44 08/20/19 19:44 08/20/19 19:44 - Notes Notes: General: Well developed . HEENT: Normocephalic, atraumatic. Pupils equal round reactive to light. No JVD. Mild pharyngeal injection, no tonsillar purulence Chest: No trauma. Respiratory: Good air exchange, normal excursion. Scant end expiratory wheezing Cardiac: Regular rhythm. No murmurs or gallops. Abdomen: Soft, benign. Nondistended. Nontender. Back: No asymmetry or gross abnormality. Motor: Grossly normal power and tone. Neurologic: Alert, nonfocal. Cranial nerves II-12 are intact. Sensation intact. Vascular: Well perfused. Normal peripheral pulses. Skin: No petechiae or purpura. Course - Re-evaluation Re-evalutation: 08/20/19 23:19 Well-appearing 23-year-old female with stigmata of viral URI. Patient was evaluated by the [facility] provider prior to my evaluation. Studies / interventions have been ordered by this provider and may still be pending. Patient is nontoxic in appearance, clear evidence of viral URI. Strep test is negative, chest x-ray negative, remainder laboratory evaluation is unremarkable. Of note, she did have some minimal end expiratory wheezing. Will treat with bronchodilator regard to MDI prescription, outpatient follow-up. She states steroids because "psychosis". - Vital Signs Vital signs: Temp Pulse Resp BP Pulse Ox 98.5 F 101 H 18 123/72 97 08/20/19 19:44 08/20/19 19:44 08/20/19 19:44 08/20/19 19:44 08/20/19 19:44 Discharge - Discharge Clinical Impression: URI (upper respiratory infection) Qualifiers: URI type: unspecified URI Qualified Code(s): J06.9 - Acute upper respiratory infection, unspecified Condition: Stable Disposition: HOME, SELF-CARE Instructions: Upper Respiratory Illness ([facility]) Additional Instructions: Follow-up with your primary care doctor over the next several days if no improvement Prescriptions: Albuterol Sulfate [Proair HFA Inhalation Aerosol 8.5 gm MDI] 2 puff IH Q4H PRN #1 mdi PRN Reason: Forms: Return to School, Return to Work
[2019-08-20 23:30] VITALS: BP 110/66
== END 2019-08-20 23:30 | disposition home or self-care (01) ==
LOC: ER 19:39
DX: J06.9 Acute upper respiratory infection, unspecified (principal); B97.89 Other viral agents as the cause of diseases classified elsewhere; R05 Cough; R06.2 Wheezing; J02.9 Acute pharyngitis, unspecified; F12.10 Cannabis abuse, uncomplicated; Z88.8 Allergy status to other drugs, medicaments and biological substances; Z88.1 Allergy status to other antibiotic agents; F17.200 Nicotine dependence, unspecified, uncomplicated
CPT/HCPCS: 71046; 87070; 87880

== ENCOUNTER 2019-09-03 09:19 | Emergency (ER) | payer OTHER ==
[2019-09-03 10:15] LABS: APPEARANCE,URINE CLEAR; BILIRUBIN,URINE NEGATIVE (NEGATIVE); COLOR,URINE YELLOW; GLUCOSE, URINE NEGATIVE (NEGATIVE); KETONES,URINE NEGATIVE (NEGATIVE); LEUKOCYTE ESTERASE,URINE SMALL (NEGATIVE); NITRITE,URINE NEGATIVE (NEGATIVE); PROTEIN,URINE NEGATIVE (NEGATIVE); URINE SPECIFIC GRAVITY 1.016; UROBILINOGEN,URINE NEGATIVE mg/dL (<2.0)
[2019-09-03 10:21] LABS: ABSOLUTE EOSINOPHILS # (AUTO) 0.2 10^3/uL (0.0-0.6); ABSOLUTE LYMPHOCYTES (AUTO) 2.1 10^3/uL (0.5-4.7); ABSOLUTE MONOCYTES (AUTO) 0.5 10^3/uL (0.1-1.4); ABSOLUTE NEUT (AUTO) 5.8 10^3/uL (1.7-8.2); BASOPHILS % (AUTO) 0.5 % (0-2); EOSINOPHILS % (AUTO) 2.1 % (0-6); HEMATOCRIT 45.1 % (36.0-47.0); HEMOGLOBIN 14.9 g/dL (12.0-15.5); LYMPHOCYTES % (AUTO) 24.7 % (13-45); MEAN CORPUSCULAR HEMOGLOBIN 29.9 pg (27.0-33.4); MEAN CORPUSCULAR HGB CONC 33.1 g/dL (32.0-36.0); MEAN CORPUSCULAR VOLUME 91 fl (80-97); MONOCYTES % (AUTO) 5.9 % (3-13); PLATELET COUNT 274 10^3/uL (150-450); RED BLOOD COUNT 4.99 10^6/uL (3.72-5.28); RED CELL DISTRIBUTION WIDTH 14.3 % (11.5-14.0); SEGMENTED NEUTROPHILS % (AUTO) 66.8 % (42-78); TOTAL CELLS COUNTED % (AUTO) 100 %; WHITE BLOOD COUNT 8.7 10^3/uL (4.0-10.5)
[2019-09-03 12:25] LABS: ALBUMIN 4.5 g/dL (3.5-5.0); ALKALINE PHOSPHATASE 63 U/L (38-126); ANION GAP 9 (5-19); ASPARTATE AMINO TRANSFERASE 60 U/L (14-36); BILIRUBIN,DIRECT 0.1 mg/dL (0.0-0.4); BILIRUBIN,TOTAL 0.5 mg/dL (0.2-1.3); BLOOD UREA NITROGEN 12 mg/dL (7-20); CALCIUM 9.5 mg/dL (8.4-10.2); CARBON DIOXIDE 26 mmol/L (22-30); CHLORIDE 103 mmol/L (98-107); GLUCOSE 97 mg/dL (75-110); POTASSIUM 4.1 mmol/L (3.6-5.0); TOTAL PROTEIN 7.9 g/dL (6.3-8.2)
[2019-09-03 13:02] VITALS: BP 118/60
[2019-09-03] MEDS ORDERED: ONDANSETRON 4 MG TAB.RAPDIS PO ONE (14:10)
[2019-09-03] MEDS ORDERED: KETOROLAC TROMETHAMINE 60 MG/2 ML SDV IM ONE (14:10)
--- NOTE | 2019-09-03 14:21 | ER Document Report ---
HPI - HPI Time Seen by Provider: 09/03/19 13:55 Pain Level: 3 Notes: Patient is an otherwise healthy 23-year-old female presenting with right upper quadrant and left upper quadrant abdominal pain. Patient reports associated nausea. She states this is been going on for several months. She reports she has had her gallbladder removed but this feels like a similar pain. She denies any fevers today. - CONSTITUTIONAL Constitutional: REPORTS: Fever - GASTROINTESTINAL Gastrointestinal: REPORTS: Abdominal Pain - REPRODUCTIVE Reproductive: DENIES: : Past Medical History - General Information source: Patient - Social History Smoking Status: Current Every Day Smoker Chew tobacco use (# tins/day): No Frequency of alcohol use: None Drug Abuse: Marijuana Family History: Reviewed & Not Pertinent Patient has suicidal ideation: No Patient has homicidal ideation: No Neurological Medical History: Reports: Hx Migraine Renal/ Medical History: Denies: Hx Peritoneal Dialysis GI Medical History: Reports: Hx Gastritis, Hx Gastroesophageal Reflux Disease, Hx Hiatal Hernia Skin Medical History: Reports Hx Cellulitis, Reports Hx Eczema Psychiatric Medical History: Reports: Hx Bipolar Disorder, Hx Depression Past Surgical History: Reports: Hx Abdominal Surgery - flap to stomach, Hx Cholecystectomy - Immunizations Immunizations up to date: Yes Hx Diphtheria, Pertussis, Tetanus Vaccination: Yes Vertical Provider Document - CONSTITUTIONAL Notes: PHYSICAL EXAMINATION: GENERAL: Well-appearing, well-nourished and in no acute distress. HEAD: Atraumatic, normocephalic. EYES: Pupils equal round and reactive to light, extraocular movements intact, conjunctiva are normal. ENT: Nares patent, oropharynx clear without exudates. Moist mucous membranes. NECK: Normal range of motion, supple without lymphadenopathy LUNGS: Breath sounds clear to auscultation bilaterally and equal. No wheezes rales or rhonchi. HEART: Regular rate and rhythm without murmurs ABDOMEN: Soft, nontender, nondistended abdomen. No guarding, no rebound. No masses appreciated. Female : deferred Musculoskeletal: Normal range of motion, no pitting or edema. No cyanosis. NEUROLOGICAL: Cranial nerves grossly intact. Normal speech, normal gait. Normal sensory, motor exams PSYCH: Normal mood, normal affect. SKIN: Warm, Dry, normal turgor, no rashes or lesions noted. - INFECTION CONTROL TRAVEL OUTSIDE OF THE [place] IN LAST 30 DAYS: No Course - Re-evaluation Re-evalutation: Laboratory 09/03/19 09/03/19 09/03/19 09:55 09:55 09:55 WBC 8.7 RBC 4.99 Hgb 14.9 Hct 45.1 MCV 91 MCH 29.9 MCHC 33.1 RDW 14.3 H Plt Count 274 Lymph % (Auto) 24.7 [place] % (Auto) 5.9 Eos % (Auto) 2.1 Baso % (Auto) 0.5 Absolute Neuts (auto) 5.8 Absolute Lymphs (auto) 2.1 Absolute Monos (auto) 0.5 Absolute Eos (auto) 0.2 Absolute Basos (auto) 0.0 Seg Neutrophils % 66.8 Sodium 137.8 Potassium 4.1 Chloride 103 Carbon Dioxide 26 Anion Gap 9 BUN 12 Creatinine 0.74 Est GFR ( Amer) > 60 Est GFR (MDRD) Non-Af > 60 Glucose 97 Calcium 9.5 Total Bilirubin 0.5 Direct Bilirubin 0.1 Neonat Total Bilirubin Not Reportable Neonat Direct Bilirubin Not Reportable Neonat Indirect Bili Not Reportable AST 60 H ALT 19 Alkaline Phosphatase 63 Total Protein 7.9 Albumin 4.5 Lipase 74.4 Urine Color YELLOW Urine Appearance CLEAR Urine pH 7.0 Ur Specific [place] 1.016 Urine Protein NEGATIVE Urine Glucose (UA) NEGATIVE Urine Ketones NEGATIVE Urine Blood NEGATIVE Urine Nitrite NEGATIVE Urine Bilirubin NEGATIVE Urine Urobilinogen NEGATIVE Ur Leukocyte Esterase SMALL H Urine WBC (Auto) 1 Urine RBC (Auto) 1 Squamous Epi Cells Auto 3 Urine Mucus (Auto) RARE Urine Ascorbic Acid 40 H Urine HCG, Qual 09/03/19 09:55 WBC RBC Hgb Hct MCV MCH MCHC RDW Plt Count Lymph % (Auto) [place] % (Auto) Eos % (Auto) Baso % (Auto) Absolute Neuts (auto) Absolute Lymphs (auto) Absolute Monos (auto) Absolute Eos (auto) Absolute Basos (auto) Seg Neutrophils % Sodium Potassium Chloride Carbon Dioxide Anion Gap BUN Creatinine Est GFR ( Amer) Est GFR (MDRD) Non-Af Glucose Calcium Total Bilirubin Direct Bilirubin Neonat Total Bilirubin Neonat Direct Bilirubin Neonat Indirect Bili AST ALT Alkaline Phosphatase Total Protein Albumin Lipase Urine Color Urine Appearance Urine pH Ur Specific [place] Urine Protein Urine Glucose (UA) Urine Ketones Urine Blood Urine Nitrite Urine Bilirubin Urine Urobilinogen Ur Leukocyte Esterase Urine WBC (Auto) Urine RBC (Auto) Squamous Epi Cells Auto Urine Mucus (Auto) Urine Ascorbic Acid Urine HCG, Qual NEGATIVE Pt reports improvement while in the ED. 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 Will f/u with pcp. ED return precautions discussed. The patient's emergency department workup and current diagnosis were explained to the patient and or family. Follow-up instructions were provided. Medications if prescribed were discussed. Instructions for when to return to the emergency department including specific worrisome symptoms were discussed with the patient and/or family. - Vital Signs Vital signs: Temp Pulse Resp BP Pulse Ox 98.0 F 62 16 118/60 99 09/03/19 12:54 09/03/19 12:54 09/03/19 12:54 09/03/19 12:54 09/03/19 12:54 - Laboratory Result Diagrams: 09/03/19 09:55 09/03/19 09:55 Laboratory results interpreted by me: 09/03/19 09/03/19 09/03/19 09:55 09:55 09:55 RDW 14.3 H AST 60 H Ur Leukocyte Esterase SMALL H Urine Ascorbic Acid 40 H Discharge - Discharge Clinical Impression: Abdominal pain Qualifiers: Abdominal location: generalized Qualified Code(s): R10.84 - Generalized ab dominal pain Condition: Stable Disposition: HOME, SELF-CARE Additional Instructions: Your work-up today was unremarkable. It is possible that your pain is being caused by a stone in the common bile duct although unfortunately you had to leave prior to having an ultrasound of this area done. At this time all your labs look normal which is good. Please follow-up with your primary care provider for consideration of a right upper quadrant ultrasound. Return to the emergency department with any new or worsening symptoms to include persistent fever, vomiting, worsening pain we are happy to reevaluate you at any time. Forms: Return to Work
== END 2019-09-03 14:31 | disposition home or self-care (01) ==
LOC: ER 09:19
DX: R10.84 Generalized abdominal pain (principal); R10.11 Right upper quadrant pain; R10.12 Left upper quadrant pain; R11.0 Nausea; F17.200 Nicotine dependence, unspecified, uncomplicated; Z90.49 Acquired absence of other specified parts of digestive tract
CPT/HCPCS: 99284; 96372; 36415; 83690; 85025; 81025; 80053; 81001; J1885; S0119